=== PATIENT | female | born 2000 | race Caucasian/White ===

== ENCOUNTER 2020-01-17 09:31 | Outpatient (CLI) | payer MEDICAID, SELFPAY ==
--- NOTE | 2020-01-17 | US_ITS ---
WS: [id number] ULTRASOUND OB COMPLETE TECHNIQUE: Complete ultrasound. CLINICAL INFORMATION: SUPERVISION OF NORMAL FIRST COMPARISON: None. FINDINGS: Single interuterine gestation is identified with vertex presentation. Placenta is posterior. Placenta grade 0. Normal amniotic fluid volume. cardiac activity: 148 BPM. AGA: 20 weeks 3 days EMERSON by ultrasound: June 02, 2020 Estimated weight: 12 ounces BDP: 4.8 cm = 20w3d HC: 17.6 cm = 20w1d AC: 15.1 cm = 20w2d FEMUR LENGTH: 3.4 cm = 20w4d Anatomic survey: Anatomic survey is normal. Normal stomach. Kidneys and bladder are normal. Normal 3 vessel cord. Norm al 3 vessel cord insertion. Normal 4 chamber heart. Normal spine. Intracranial contents are normal. N ormal posterior fossa and cisterna magna. US/US OB >= 14 weeks fetus [id number] IMPRESSION: 1. Single intrauterine with visualized cardiac activity. AGA 20 week s 3 days with EMERSON June 02, 2020. 2. Placenta is posterior No evidence of abruption or previa. 3. anatomic survey is normal. 4. Normal amniotic fluid volume.
== END 2020-01-17 09:32 | disposition home or self-care (01) ==
LOC: RADWPI 11:37
PROVIDERS: PCP Nurse Practitioner Family; Visit Provider Family Medicine
DX: Z76.89 Persons encountering health services in other specified circumstances (principal)

== ENCOUNTER → 2020-03-08 08:28 | Outpatient (BNVA) | payer MEDICAID, SELFPAY | PROVIDERS: PCP Nurse Practitioner Family; Visit Provider Social Worker | DX: F33.2 Major depressive disorder, recurrent severe without psychotic features (principal); F43.12 Post-traumatic stress disorder, chronic | CPT/HCPCS: 90834 ==

== ENCOUNTER 2020-04-23 14:30 | Inpatient (IN) | payer MEDICAID, SELFPAY ==
[2020-04-23] VITALS (56 sets, daily range): BP systolic 0–140; BP diastolic 0–72; PULSE 69–105; RESP 17–18; TEMP 36.6–37.2; BMI 29.0
[2020-04-23] MEDS: terbutaline 1 mg/mL INJ 0.25 MG SUBCUT (11:47)
[2020-04-23] MEDS: lactated ringers 1,000 ML 999 ML IV (12:57)
[2020-04-23] MEDS: NIFEdipine ER (24 hr) 30 mg Tablet PO (12:57)
[2020-04-23] MEDS: betamethasone susp 6 mg/mL 5 mL 12 MG IM (14:58)
[2020-04-23] MEDS: dextrose 5%-lactated ringers 1,000 ML 125 ML IV (14:59)
[2020-04-23] MEDS: magnesium sulfate premix 4 GM/100 ML PREMIX IV (15:00)
[2020-04-23] MEDS: magnesium sulfate premix 20 GM/500 ML BAG IV ×2 (15:00→23:28)
[2020-04-23 16:10] LABS: Nitrazine Paper, PH Inconclusive
[2020-04-23 16:21] LABS: Actim Prom Negative
--- NOTE | 2020-04-23 17:58 | PC.NURSE ---
Talking on phone to s/o
--- NOTE | 2020-04-23 19:17 | PC.NURSE ---
Call to Lisbeth Colon RN nurse scheduling manager regarding pt significant other leaving floor to go smoke after knowing many times he was told he would not be aloud back on floor with the pt if left. Significant other Damian left floor before pt was started on magnesium and was aware that she was in possible early labor. After discussing situation with Lisbeth Colon RN she stated that at this time he would not be allowed back as he was aware of this but if pt were to go into labor and deliver baby we would reassess about if he may return to floor.
--- NOTE | 2020-04-23 20:01 | P.HP_ITS ---
Providers/Chief Complaint Admitting Physician: Mily Kenyon MD Primary Care Provider: Rosie Warner Chief Complaint: Decreased Movement History of Present Illness Note: Patient is an inconsistent historian Eladia Haynes is a 19 year old at 34 weeks 2 days gestation with a stated EMERSON of 06/01/2020 who presented to labor and delivery complaining of 1 day history of decreased movement. She had been traveling on the road with her spouse and they just returned to town yesterday. She had a little bit of green vaginal discharge but no itching or irritation. No vaginal bleeding. No leaking of fluid. No dysuria. She says that yesterday she began feeling contractions but this was only after we pointed out contractions on the monitor to her and asked about tightening. (she reported 9 days of contractions and 2 days of decreased movement to nursing) On presentation the patient was louis regularly every 2 minutes. She was feeling the contractions though they were not painful. She was given a 1 L bolus of fluid. She was given a dose of terbutaline which did not stop the contractions. Her cervix was checked and was 2 cm dilated, 75% effaced (highly unusual for a G1 at 34 weeks). She was given a dose of betamethasone and started on magnesium sulfate to prevent further progression of labor. Her contractions did space out a little bit and are at times irregular but can still be every 2 to 5 minutes. Several hours after starting the magnesium however she no longer feels the contractions that we continue to pick them up on the monitor. Her cervix was rechecked 4 hours later and there was no cervical change. Review of Systems Const: Denies: fever(s), body aches or change in appetite Eyes: Denies: change in vision ENMT: Denies: throat pain Card: Denies: chest pain or palpitations Resp: Denies: dyspnea or productive cough GI: Denies: abdominal pain, nausea or vomiting : Reports: vaginal discharge (Green); Denies: flank pain, dysuria, hematuria, genital pruritis, vaginal bleeding or pelvic pain Musc: Denies: limited range of motion Skin/Breast: Denies: rash Neuro: Denies: behavioral changes Cade/Lymph: Denies: easy bruising or easy bleeding Medications/Allergies Home Medications Medication Instructions Recorded Confirmed Last Taken Type Heartburn Relief 04/23/20 Unknown History Allergies Allergy/AdvReac Type Severity Reaction Status Date / Time adhesive Allergy ALGY-Hives Verified 04/23/20 11:06 Penicillins Allergy Unknown Verified 04/23/20 11:06 PFSH Acute PFSH: Medical History (Updated 04/23/20 @ 20:19 by Mily Kenyon MD) Foot trauma Surgical History (Updated 04/23/20 @ 20:06 by Mily Kenyon MD) [place] teeth removed Female Reproductive History: : 1 Vitals/I&O/Wt Last Vital Signs Temp 98.2 F 04/23/20 11:11 Pulse 100 04/23/20 19:52 Resp 18 04/23/20 11:10 BP 107/66 04/23/20 19:52 04/23/20 04/23/20 04/23/20 06:59 14:59 22:59 Intake Total 1000 / 1000 877.917 / 1877.917 Output Total 750 / 750 Balance 1000 / 1000 127.917 / 1127.917 Weight last 48 hrs Weight 154 lb Physical Exam Const: COMMON NORMALS: no acute distress and average body habitus HENMT: COMMON NORMALS: normocephalic and atraumatic Eye: COMMON NORMALS: Equal, round and reactive pupils present and EOMs intact bilaterally Chest: COMMONS NORMALS: normal inspection of the chest Resp: COMMON NORMALS: normal respiratory effort and clear to auscultation bilaterally Cardio: COMMON NORMALS: regular rate and regular rhythm GI: COMMON NORMALS: Soft to palpation (Gravid), non-tender and no masses Extremity: COMMON NORMALS: no calf tenderness and no pedal edema Neuro: COMMON NORMALS: patient oriented x3 Psych: COMMON NORMALS: mental status grossly normal Urinary Catheter Management^: Latex Free: Cath Placed During This Visit: yes Reason for Continuing Indwelling Catheter: Accurate Measurement of Urinary Output in Critically Ill Patients Urinary Catheter Date of Insertion: 04/23/20 Urinary Catheter Time of Insertion: 15:45 A&P Assessment and plan (1) labor in third trimester: The patient continues to have regular contractions on magnesium however she can no longer feel them. She is status post 1 dose of betamethasone (which I decided to give her at 34 weeks 2 days gestation [place] She will receive a second dose tomorrow. Going to check urine GC and chlamydia. Should the patient breakthrough and start to labor on the magnesium we will start GBS protocol since she is GBS unknown. Status: Acute (2) Decreased movement: The was reactive upon presentation with good accelerations. We will do NST every shift and as needed Status: Acute (3) 34 weeks gestation of : 34 weeks 2 days gestation per patient stated EMERSON of 06/01/2020 Status: Acute (4) Heartburn during in third trimester: Pt previously lost significant weight due to this. Cont on PPI. 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
[2020-04-23 22:04] LABS: Bilirubin Urine Neg (NEGATIVE); Blood Urine 3+ (Negative); Glucose Urine UA Norm (Normal); Ketones Urine 2+ (Negative); Leukocyte Esterase Urine Negative (Negative); Nitrate Urine Negative (Negative); Protein Urine Neg (Negative); Urine Appearance SL Hazy (CLEAR); Urine Color Yellow (Yellow); Urobilinogen Urine Norm (Negative); pH Urine 6 (5-7)
[2020-04-23 22:05] LABS: Add Urine Culture? Yes; Bacteria Urine TRACE; Mucus Urine TRACE; RBC Urine 25-40 /hpf (0-2); Squamous Epithelial Cell Urine 0-4 (0-5); WBC Urine 0-4 /hpf (0-5)
[2020-04-23] MEDS: pantoprazole DR 40 mg Tablet PO (23:29)
--- NOTE | 2020-04-23 23:38 | PC.NURSE ---
04/23/2020 @ 2910 New bag of Mag duarte and verified with KELLY Castro
--- NOTE | 2020-04-23 23:48 | PC.NURSE ---
04/23/2020 @ 2200 Up to bedside commode with assistance. Educated patient on calling out for assistance back to bed. Patient V/U.
[2020-04-24] VITALS (43 sets, daily range): BP systolic 0–124; BP diastolic 0–65; PULSE 70–98; RESP 17; TEMP 36.4–36.6
[2020-04-24] MEDS: dextrose 5%-lactated ringers 1,000 ML 75 ML IV ×2 (04:29→17:54)
[2020-04-24] MEDS: pantoprazole DR 40 mg Tablet PO ×2 (07:33→17:43)
[2020-04-24] MEDS: magnesium sulfate premix 20 GM/500 ML BAG IV ×2 (10:32→19:44)
[2020-04-24] MEDS: betamethasone susp 6 mg/mL 5 mL 12 MG IM (14:35)
--- NOTE | 2020-04-24 19:26 | PM.PN ---
Subjective Subjective: Interval history: Doing fine. She has good movement today. She got her second dose of betamethasone around 230 this afternoon. She had a small amount of brownish discharge but otherwise no loss of fluid. Vitals/I&O/Wt Last Vital Signs Temp 97.6 F 04/24/20 03:30 Pulse 96 04/24/20 19:08 Resp 17 04/24/20 03:30 BP 118/65 04/24/20 19:08 04/24/20 04/24/20 04/24/20 06:59 14:59 22:59 Intake Total 360.417 / 2675.000 348.333 / 842.549 7388 / 1348.333 Output Total 1225 / 2850 1460 / 1460 350 / 1810 Balance -864.583 / -175.000 -1111.667 / -1111.667 650 / -461.667 Weight last 48 hrs Weight 154 lb Physical Exam HENMT: COMMON NORMALS: normocephalic and atraumatic HEAD & SCALP: normocephalic and atraumatic Eye: COMMON NORMALS: Equal, round and reactive pupils present and EOMs intact bilaterally PUPIL: Yes Equal, round and reactive pupils present Chest: COMMONS NORMALS: normal inspection of the chest Resp: COMMON NORMALS: normal respiratory effort, No retractions and No use of accessory muscles Cardio: COMMON NORMALS: regular rate and regular rhythm RATE: regular rate RHYTHM: regular rhythm GI: COMMON NORMALS: Soft to palpation (Gravid) and non-tender PALPATION: Yes Soft to palpation (Gravid) Extremity: COMMON NORMALS: no calf tenderness GENERAL: Yes edema (1+) Urinary Catheter Management^: Latex Free: Cath Placed During This Visit: yes, but has since been removed by the nurse Reason for Continuing Indwelling Catheter: Accurate Measurement of Urinary Output in Critically Ill Patients Urinary Catheter Date of Insertion: 04/23/20 Urinary Catheter Time of Insertion: 15:45 Date Urinary Catheter Removed: 04/23/20 Time Urinary Catheter Discontinued: 20:00 Flower Latex: Cath Placed During This Visit: yes Reason for Continuing Indwelling Catheter: Accurate Measurement of Urinary Output in Critically Ill Patients Urinary Catheter Date of Insertion: 04/23/20 Urinary Catheter Time of Insertion: 20:00 Data Micro: Microbiology 04/23/20 21:30 Chlamydia trachomatis (ARIELA) - Final Urine Random Neisseria gonorrhoeae (ARIELA) - Final A&P Assessment and plan (1) Heartburn during in third trimester: Continue PPI Status: Acute (2) 34 weeks gestation of : 34w4d Status: Acute (3) Decreased movement: resolved Status: Acute (4) labor in third trimester: She has been on the magnesium now for little bit over 24 hours and her contractions have resolved completely. We will discontinue the magnesium after 48 hours so the steroids have had time to take effect. As a precaution I will likely start Procardia prior to discontinuing the magnesium. Possible discharge home later tomorrow evening if not in labor. 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
[2020-04-25] VITALS (24 sets, daily range): BP systolic 0–119; BP diastolic 0–63; PULSE 17–96; RESP 17; TEMP 36.8; O2SAT 97
[2020-04-25] MEDS: magnesium sulfate premix 20 GM/500 ML BAG IV (05:24)
[2020-04-25] MEDS: dextrose 5%-lactated ringers 1,000 ML 75 ML IV (05:25)
[2020-04-25] MEDS: pantoprazole DR 40 mg Tablet PO (07:37)
[2020-04-25] MEDS: NIFEdipine ER (24 hr) 30 mg Tablet PO (14:06)
--- NOTE | 2020-04-25 14:30 | PC.NURSE ---
Magnesium discontinued Magnesium discontinued at this time. Flower catheter removed.
--- NOTE | 2020-04-25 16:45 | PM.DCS ---
Discharge Providers Date of Admission: 04/23/20 14:30 Date of Discharge: April 25, 2020 Attending Provider at Admission: Mily Kenyon MD Attending Provider at Discharge: Mily Kenyon MD Primary Care Provider: Rosie Warner Diagnoses at Discharge Discharge Diagnosis (1) Heartburn during in third trimester: Status: Acute (2) 34 weeks gestation of : Status: Acute Problem details: Now 34 weeks 5 days gestation status post betamethasone x2 (3) Decreased movement: Status: Acute Problem details: Reactive NSTs (4) labor in third trimester: Status: Acute (5) Bloody discharge from nipple: Status: Acute Problem details: Mentioned upon discharge Reason for Visit Reason for Visit: Reason For Visit: Decreased Movement Hospital Course Hospital Course: This is a 19-year-old G1, P0 at 34 weeks 5 days gestation who was initially triaged for decreased movement. Her NST was reactive however did show regular contractions. Upon further questioning the patient did admit to feeling the contractions. She stated that they have been going on anywhere from 9 to 2 days. She was given a dose of terbutaline but continued to contract. She was given a liter of IV fluids and continued to contract. She was then started on magnesium which eventually resolved her contractions. She got 2 doses of betamethasone and is now 48 hours out from the first dose. She has been weaned off the magnesium and has been placed on Procardia 30 mg XL. At the time of discharge the patient pointed out to this physician that she had bilateral bloody nipple discharge greater on the left side. She states this is been going on for 18 or 19 days. This will need to be worked up outpatient. Physical Exam HENMT: COMMON NORMALS: normocephalic and atraumatic HEAD & SCALP: normocephalic and atraumatic Eye: COMMON NORMALS: Equal, round and reactive pupils present and EOMs intact bilaterally PUPIL: Yes Equal, round and reactive pupils present Chest: NIPPLE/AREOLA: Yes nipple discharge (BRB on gown) Nipple discharge: yellow and brown Resp: COMMON NORMALS: normal respiratory effort and No retractions Cardio: COMMON NORMALS: regular rate and regular rhythm RATE: regular rate RHYTHM: regular rhythm GI: COMMON NORMALS: Soft to palpation and non-tender (Gravid) PALPATION: Yes Soft to palpation Extremity: COMMON NORMALS: no calf tenderness GENERAL: Yes edema (1+ to trace bilaterally) Urinary Catheter Management^: Latex Free: Cath Placed During This Visit: yes, but has since been removed by the nurse Reason for Continuing Indwelling Catheter: Accurate Measurement of Urinary Output in Critically Ill Patients Urinary Catheter Date of Insertion: 04/23/20 Urinary Catheter Time of Insertion: 15:45 Date Urinary Catheter Removed: 04/23/20 Time Urinary Catheter Discontinued: 20:00 Flower Latex: Cath Placed During This Visit: yes, but has since been removed by the nurse Reason for Continuing Indwelling Catheter: Decision to DC Catheter Urinary Catheter Date of Insertion: 04/23/20 Urinary Catheter Time of Insertion: 20:00 Date Urinary Catheter Removed: 04/25/20 Time Urinary Catheter Discontinued: 14:35 Discharge Data Data Completed and Pending: Pending at discharge Category Date Time Status Urine Culture Rou magdiel Lab 04/23/20 21:30 Received Vitals: Last Vital Signs Temp 97.9 F 04/24/20 19:30 Pulse 75 04/25/20 16:08 Resp 17 04/24/20 19:30 BP 102/47 04/25/20 16:08 Pulse Ox 97 04/25/20 14:35 Discharge Plan Discharge Patient Disposition: Home, Self-Care Condition: Stable Prescriptions: New nifedipine 30 mg Tablet Extended Release 24hr 30 mg PO DAILY Qty: 30 RF: 0 Continued Heartburn Relief RF: 0 Discharge Orders: Discharge Order (Routine); Ordered 04/25/20 Ordered By: Mily Kenyon Referrals: Mily Kenyon MD [Physician] - 1 week Discharge Diet: Usual diet Discharge Activity: Limit activity as instructed Discharge Attestations Time Spent in Discharge Care*: less than 30 min Quality Metrics Clinical Quality Measures During this hospital stay, did patient experience: None Coding Level of Care Code Acute 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
== END 2020-04-25 15:55 | disposition home or self-care (01) | DRG 833 ==
LOC: OBGYN 04-24 11:42 → OPOB 04-25 08:49
PROVIDERS: Admitting Provider Family Medicine; PCP Nurse Practitioner Family; Visit Provider Family Medicine
DX: O60.03 Preterm labor without delivery, third trimester (principal); Z3A.34 34 weeks gestation of pregnancy; O36.8130 Decreased fetal movements, third trimester, not applicable or unspecified; O26.893 Other specified pregnancy related conditions, third trimester; R12 Heartburn; O92.79 Other disorders of lactation
CPT/HCPCS: 12345; 51702; 59025; 81001; 83986; 84112; 87086; 87491; 87591; 96372; 99211; J0702; J3105; J3475

== ENCOUNTER → 2020-05-01 08:35 | Outpatient (BNVA) | payer MEDICAID, SELFPAY | PROVIDERS: PCP Nurse Practitioner Family; Visit Provider Social Worker | DX: F33.2 Major depressive disorder, recurrent severe without psychotic features (principal); F43.12 Post-traumatic stress disorder, chronic | CPT/HCPCS: 90834 ==

== ENCOUNTER 2020-05-02 16:20 | Inpatient (IN) | payer MEDICAID, SELFPAY ==
[2020-05-02] VITALS (56 sets, daily range): BP systolic 0–145; BP diastolic 0–99; PULSE 37–104; RESP 16–18; TEMP 36.9–37.2; O2SAT 93–98; BMI 27.9
[2020-05-02] MEDS: dextrose 5%-lactated ringers 1,000 ML 125 ML IV (17:24)
[2020-05-02] MEDS: ceFAZolin 1,000 MG in sodium chloride 0.9% (plus) 50 ML 100 MG IV ×2 (17:24→20:41)
[2020-05-02] MEDS: fentaNYL 50 mcg/mL INJ 2mL IV (17:28)
[2020-05-02 18:10] LABS: Basophils # 0.1 10^3/uL (0.0-0.1); Basophils % 0.2 %; Eosinophils # 0.1 10^3/uL (0.0-0.8); Eosinophils % 0.4 %; Hematocrit 36.6 % (37.0-47.0); Hemoglobin 11.8 g/dL (11.5-15.3); Lymphocytes # 1.4 10^3/uL (1.5-6.5); Mean Corpuscular HGB Conc 32.2 g/dL (30.0-36.0); Mean Corpuscular Hemoglobin 28.2 pg (28.0-34.0); Mean Corpuscular Volume 87.4 fL (81-99); Mean Platelet Volume 11.8 fL (7.4-10.4); Monocytes % 4.2 %; Neutrophils # 20.4 10^3/uL (1.8-8.0); Neutrophils % 88.4 %; Nucleated Red Blood Cells % 0 %; Platelet Count 244 10^3/cmm (130-400); Red Blood Count 4.19 10^6/uL (4.1-5.3); White Blood Count 23.1 10^3/uL (4.5-13.0)
[2020-05-02 18:19] LABS: Amphetamines Screen Urine Negative (Negative); Barbiturates Screen Urine Negative (Negative); Benzodiazepines Screen Urine Negative (Negative); Cocaine Screen Urine Negative (Negative); Opiate Screen Urine Negative (Negative); PCP Screen Urine Negative (Negative); THC Screen Urine Negative (Negative)
[2020-05-02 18:29] LABS: Bilirubin Urine Neg (NEGATIVE); Blood Urine Neg (Negative); Glucose Urine UA Norm (Normal); Ketones Urine 2+ (Negative); Leukocyte Esterase Urine Negative (Negative); Nitrate Urine Negative (Negative); Protein Urine Neg (Negative); Specific Gravity, Urine 1.015 (1.005-1.030); Urine Appearance Clear (CLEAR); Urine Color Yellow (Yellow); Urobilinogen Urine Norm (Negative); pH Urine 6 (5-7)
[2020-05-02 18:30] LABS: Add Urine Culture? No; Bacteria Urine TRACE; Mucus Urine 2+; RBC Urine 0-4 /hpf (0-2); Squamous Epithelial Cell Urine 15-25 (0-5); WBC Urine 0-4 /hpf (0-5)
--- NOTE | 2020-05-02 19:38 | P.ANESASSM_ITS ---
Pre-Anesthetic Assessment Pre-Anesthetic Assessment: Height/Weight: Height 1.55 m Weight 67.132 kg Temp Pulse Resp BP 98.6 F 81 16 100/48 05/02/20 16:16 05/02/20 19:33 05/02/20 17:28 05/02/20 19:33 Preop Diagnosis: IUP Proposed Procedure: Labor epidural Was Beta Rick taken within 24 hours: N/A Last Intake: 15:00 Social: Social History: No alcohol and No tobacco Exam: Pre-Anes Outpt Exam: alert and oriented x 3 Airway: Submandibular: WNL Cervical ROM: WNL MP: 2 Dentition: Other Additional comments: braces Pulmonary: Pulmonary: None reported CV/HEM: CV/HEM: None reported : Comments: urinary infection that was treated in march, denies urinary symptoms at this time. urinalysis negative for nitrates and leukocytes Hepatic: Hepatic: None reported GI: GI: GERD Metabolic: Metabolic: None reported Musc/skel: Musc/skel: None reported Neuropsych: Neuropsych: Anxiety and Depression Anesthetic Plan: ASA status: 2 Anesthesia: Anesthesia Evaluation and Eval. for regional block Risk of > 500 ml blood loss (7ml/kg in children): No Meds/Allergies Current Medications: Current Medications Generic Name Dose Route Start Last Admin Trade Name Freq PRN Reason Stop Dose Admin Fentanyl 25 - 100 mcg 05/02/20 17:01 05/02/20 17:28 Sublimaze IV 25 mcg Q1H PRN Administration SEVERE PAIN Dextrose/Lactated Ringer's 1,000 mls @ 125 m ls/hr 05/02/20 17:00 05/02/20 17:24 Dextrose 5%-Lact ated Ringers IV 125 mls/hr .Q8H IDA Administration Cefazolin Sodium 1 ,000 mg/ 50 mls @ 100 mls/ hr 05/02/20 17:15 05/02/20 17:54 Sodium Chloride IV Infused Q8H IDA Infusion Protocol PFS Anesthesia PFSH: Medical History (Updated 04/25/20 @ 16:47 by Mily Kenyon MD) Foot trauma Surgical History (Updated 04/23/20 @ 20:06 by Mily Kenyon MD) [place] teeth removed Female Reproductive History: : 1 Data Anesthesia CBC & Chem 7: 05/02/20 17:00 Other Labs: Laboratory Results - last 48 hr 05/02/20 05/02/20 05/02/20 17:00 17:50 17:50 WBC 23.1 H RBC 4.19 Hgb 11.8 Hct 36.6 L MCV 87.4 MCH 28.2 MCHC 32.2 RDW 13.0 Plt Count 244 MPV 11.8 H Neut % (Auto) 88.4 Lymph % (Auto) 6.0 [place] % (Auto) 4.2 Eos % (Auto) 0.4 Baso % (Auto) 0.2 Neut # (Auto) 20.4 H Lymph # (Auto) 1.4 L [place] # (Auto) 1.0 H Eos # (Auto) 0.1 Baso # (Auto) 0.1 Nucleated RBC % (auto) 0 Nucleated RBCs # 0.0 Urine Color Yellow Urine Appearance Clear Urine pH 6 Ur Specific [place] 1.015 Urine Protein Neg Urine Glucose (UA) Norm Urine Ketones 2+ H Urine Blood Neg Urine Nitrate Negative Urine Bilirubin Neg Urine Urobilinogen Norm Ur Leukocyte Esterase Negative Urine RBC 0-4 H Urine WBC 0-4 H Ur Squamous Epith Cells 15-25 H Urine Bacteria Trace Urine Mucus 2+ Urine Opiates Screen Negative Ur Barbiturates Screen Negative Ur Phencyclidine Scrn Negative Ur Amphetamines Screen Negative U Benzodiazepines Scrn Negative Urine Cocaine Screen Negative U Marijuana (THC) Screen Negative Cardiac Studies: No Data to Display
[2020-05-02] MEDS: lactated ringers 1,000 ML 999 ML IV (19:51)
--- NOTE | 2020-05-02 20:15 | ANES.PROC ---
Anesthesia Procedures Procedure/Date: 05/02/20 Labor epidural Epidural: Time Out Performed: Yes Consents Signed: Procedure Consent Consent: requested by attending/covering physician, from patient and risks and benefits reviewed Lumbar Level: L3-L4 Epidural position: sitting Epidural procedure: sterile prep of area, 1% lidocaine to numb the area (3 cc ), 18 g needle (L4-L5), negative for paresthesia passed, neg for paresthesia, test dose given (3 cc no reaction), 1.5% xylocaine 1:200k epi, placed PCEA (5 cc bolus from news analyst), no systemic response and 0.2% Ropiavacaine @ mls/hr (11 mls/hr 5 cc bolus Q 10 min x max 3) Additional Comments: Started 1954: USMAN at 6 cm epidural catheter threaded to 14 cm at skin. pump started at 2008. Patient states toes are starting to feel numb and tingly. VSS see Obyx system
--- NOTE | 2020-05-02 22:49 | PC.NURSE ---
Dr Kenyon at bedside evaluating pushing effort, she states to labor down and place patient on the peanut ball. She wants patient to labor down until 0015, then start pushing with patient again.
[2020-05-03] VITALS (24 sets, daily range): BP systolic 98–141; BP diastolic 62–88; PULSE 61–102; RESP 16–18; TEMP 36.4–37.4; O2SAT 96–99
[2020-05-03] MEDS: oxytocin 30 UNIT/500 ML BAG 600 UNIT IV (01:38)
--- NOTE | 2020-05-03 01:56 | PM.DELIVERY ---
Delivery Note: Date of delivery: May 03, 2020 Pre-Delivery Course: The patient had routine care at [facility]. Her was complicated by labor at 34 weeks gestation where she was admitted for a good 48-hour stay on magnesium. She received 2 doses of betamethasone during her hospitalization. Delivery: This is a 19-year-old G1, P0 at 35 weeks 6 days gestation who presented to labor and delivery in active labor. She was louis regularly and cervical dilation was 3 cm 90% effaced -1 station. She was GBS unknown and penicillin allergic so she was started on cefazolin. She progressed well on her own and received an epidural for pain management. When she was 9 cm and 0 station she had artificial rupture of membranes with a small amount of clear fluid. Once she was complete we did a trial of pushing that was ineffective so she was allowed to labor down. She had off-and-on ineffective pushing but after approximately an hour and a half had a normal spontaneous vaginal delivery of a viable male over an intact perineum. The was suctioned at delivery and placed on the mother's chest. The cord was clamped and cut. Infant weighed 5 pounds 11 ounces, 2570 g, Apgars 8 and 9. The placenta was delivered grossly intact and normal to inspection. There was a second-degree left vaginal laceration that was sutured using 3-0 chromic. Mother and were doing well after delivery. 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
[2020-05-03] MEDS: benzocaine-menthol 78 gm Canister 1 SPRAY TOPICAL (04:35)
[2020-05-03] MEDS: lanolin oint 7 gm 1 APPLIC TOPICAL (04:36)
--- NOTE | 2020-05-03 04:56 | PC.NURSE ---
Patient ambulated to PP room at this time, no complaints of dizziness, nausea, or feelings of being lightheaded.
[2020-05-03] MEDS: docusate sodium 100 mg Capsule PO (10:54)
[2020-05-03] MEDS: prenatal vitamin Capsule 1 CAP PO (10:58)
[2020-05-03 18:02] LABS: Hematocrit 30.8 % (37.0-47.0); Hemoglobin 9.9 g/dL (11.5-15.3); Mean Corpuscular HGB Conc 32.1 g/dL (30.0-36.0); Mean Corpuscular Hemoglobin 27.8 pg (28.0-34.0); Mean Corpuscular Volume 86.5 fL (81-99); Platelet Count 213 10^3/cmm (130-400); Red Blood Count 3.56 10^6/uL (4.1-5.3); Red Cell Distribution Width 12.8 % (12.1-15.1); White Blood Count 18.6 10^3/uL (4.5-13.0)
[2020-05-04 05:33] VITALS: BP 114/72; PULSE 82; RESP 18; TEMP 36.8
--- NOTE | 2020-05-04 08:10 | PC.NURSE ---
Discussed with pt about continuing to express her milk and feed with a bottle. She plans to do that but is happy baby is feeding better now.
[2020-05-04] MEDS: docusate sodium 100 mg Capsule PO ×2 (08:44→18:43)
[2020-05-04] MEDS: prenatal vitamin Capsule 1 CAP PO (08:44)
[2020-05-04 10:30] VITALS: BP 118/74; PULSE 87; RESP 17; TEMP 36.6; O2SAT 97
--- NOTE | 2020-05-04 12:33 | P.PN_ITS ---
Subjective Subjective: Interval history: Doing fine. Has no complaints today. Says bleeding is like a period Vitals/I&O/Wt Last Vital Signs Temp 98.2 F 05/04/20 05:33 Pulse 82 05/04/20 05:33 Resp 18 05/04/20 05:33 BP 114/72 05/04/20 05:33 Pulse Ox 99 05/03/20 20:30 Weight last 48 hrs Weight 148 lb Physical Exam Const: COMMON NORMALS: patient oriented x3 HENMT: COMMON NORMALS: normocephalic and atraumatic HEAD & SCALP: normocephalic and atraumatic FACE & SINUS: normal facial exam Eye: COMMON NORMALS: Equal, round and reactive pupils present and EOMs intact bilaterally PUPIL: Yes Equal, round and reactive pupils present GI: COMMON NORMALS: Soft to palpation (Fundus firm U- 2) INSPECTION: Yes normal to inspection PALPATION: Yes Soft to palpation (Fundus firm U- 2), No Tenderness to palpation present (GI), No Guarding due to palpation present (GI) and No Rigid due to palpation Extremity: GENERAL: No calf tenderness and No edema Neuro: COMMON NORMALS: patient oriented x3 Urinary Catheter Management^: Flower: Cath Placed During This Visit: yes, but has since been removed by the nurse Reason for Continuing Indwelling Catheter: Decision to DC Catheter Urinary Catheter Date of Insertion: 05/02/20 Urinary Catheter Time of Insertion: 20:15 Date Urinary Catheter Removed: 05/02/20 Time Urinary Catheter Discontinued: 22:05 Data : 05/03/20 15:50 A&P Assessment and plan (1) Normal spontaneous vaginal delivery: Routine care Status: Acute (2) delivery: Status: Acute Attestations Medical Necessity Statement*: Routine care Coding Level of Care Code Acute Equipment Monitor Phototypesetting for [facility] Fwd Diagnoses Normal spontaneous vaginal delivery O80 delivery O60.10X0
[2020-05-04 16:44] VITALS: BP 119/71; PULSE 71; RESP 17; TEMP 36.9; O2SAT 97
[2020-05-04 22:40] VITALS: BP 106/69; PULSE 73; RESP 18
[2020-05-05 04:45] VITALS: BP 106/70; PULSE 73; RESP 16
[2020-05-05] MEDS: docusate sodium 100 mg Capsule PO (09:10)
[2020-05-05] MEDS: prenatal vitamin Capsule 1 CAP PO (09:10)
[2020-05-05 09:15] VITALS: BP 118/79; PULSE 62; RESP 17; TEMP 36.7
--- NOTE | 2020-05-05 13:41 | PM.OBGYDC ---
Discharge Providers BOOMSWING OPERATOR Date of Admission: 05/02/20 16:20 Date of Discharge: 05/12/20 Attending Provider at Admission: Mily Kenyon MD Attending Provider at Discharge: Mily Kenyon MD Primary Care Provider: Rosie Warner Diagnoses at Discharge Discharge Diagnosis (1) Normal spontaneous vaginal delivery: Status: Acute (2) delivery: Status: Acute Reason for Visit Reason for Visit: abd pain Hospital Course Hospital Course: This is a 19-year-old G1 now P1 who was admitted in labor. She had a normal spontaneous vaginal delivery of a viable male infant. After delivery she did well. Her bleeding was about like period. She was ambulating, tolerating a regular diet, and had no complaints of pain on the day of discharge. Information Peripartum Data: Infant Delivery Method: Vaginal Physical Exam Const: COMMON NORMALS: alert ORIENTATION/CONSCIOUSNESS: Yes oriented to person and Yes oriented to place HENMT: COMMON NORMALS: normocephalic HEAD & SCALP: normocephalic Eye: COMMON NORMALS: Equal, round and reactive pupils present and EOMs intact bilaterally PUPIL: Yes Equal, round and reactive pupils present Chest: COMMONS NORMALS: normal inspection of the chest Resp: COMMON NORMALS: normal respiratory effort and clear to auscultation bilaterally AUSCULTATION: clear to auscultation bilaterally Cardio: COMMON NORMALS: regular rate and regular rhythm RATE: regular rate RHYTHM: regular rhythm GI: COMMON NORMALS: Soft to palpation, non-tender and no masses PALPATION: Yes Soft to palpation Extremity: GENERAL: No calf tenderness and Yes edema Neuro: SENSORIUM/ORIENTATION: Yes alert, Yes oriented to person and Yes oriented to place Urinary Catheter Management^: Flower: Cath Placed During This Visit: yes, but has since been removed by the nurse Reason for Continuing Indwelling Catheter: Decision to DC Catheter Urinary Catheter Date of Insertion: 05/02/20 Urinary Catheter Time of Insertion: 20:15 Date Urinary Catheter Removed: 05/02/20 Time Urinary Catheter Discontinued: 22:05 Discharge Data Vitals: Last Vital Signs Temp 98.1 F 05/05/20 09:15 Pulse 62 05/05/20 09:15 Resp 17 05/05/20 09:15 BP 118/79 05/05/20 09:15 Pulse Ox 97 05/04/20 16:44 Discharge Plan Discharge Patient Disposition: Home, Self-Care Condition: Stable Prescriptions: Continued Prilosec 10 mg Susp,Delayed Release For Recon 10 mg PO DAILY RF: 0 Discharge Orders: Discharge Order (Routine); Ordered 05/05/20 Ordered By: Mily Kenyon Referrals: Mily Kenyon MD [Physician] - 1 month (Follow up with Dr Kenyon scheduled for June 05 9:45am) Discharge Diet: Usual diet Discharge Activity: Limit activity as instructed Patient Instructions: OB Discharge Report, OB Food/Drug Interaction Guide, OB Care at Home, OB Vaginal Deliveries Discharge Date/Time: 05/05/20 16:05 Discharge Attestations BOOMSWING OPERATOR Time Spent in Discharge Care*: less than 30 min Coding Level of Care Code Acute Human Resources Operations Director for Chg Fwd Exam Comprehensive Diagnoses Normal spontaneous vaginal delivery O80 delivery O60.10X0
--- NOTE | 2020-05-05 14:50 | PC.NURSE ---
Discussed with mother that the babies IV infiltrated and had to be discontinued. At this time it would be important to keep up with feeding the baby every 2-3hr and we would most likely start back up every 4hr blood sugar checks. Also discussed the importance of continuing to keep baby wrapped and bundled to keep temperature up so baby will not have to work as hard to regulate temperature and burn more calories and blood sugar, mother verbalized understanding at this time. No questions or concerns noted.
[2020-05-05 19:23] VITALS: BP 111/70; PULSE 69; RESP 16; TEMP 36.9
--- NOTE | 2020-05-05 19:24 | PC.NURSE ---
Rooming with baby
== END 2020-05-05 16:05 | disposition home or self-care (01) | DRG 807 ==
LOC: OPOB 05-03 01:57 → OBGYN 05-03 01:57
PROVIDERS: Admitting Provider Family Medicine; PCP Nurse Practitioner Family; Visit Provider Family Medicine
DX: O60.14X0 Preterm labor third trimester with preterm delivery third trimester, not applicable or unspecified (principal); Z37.0 Single live birth; Z3A.35 35 weeks gestation of pregnancy; O70.1 Second degree perineal laceration during delivery
CPT/HCPCS: 12345; 36415; 51702; 59025; 59409; 80306; 81001; 83986; 85025; 85027; 96374; 98960; 99211; J0690; J2795; J3010

== ENCOUNTER → 2020-05-18 07:58 | Outpatient (BNVA) | payer MEDICAID, SELFPAY | PROVIDERS: PCP Nurse Practitioner Family; Visit Provider Social Worker Clinical | DX: F33.2 Major depressive disorder, recurrent severe without psychotic features (principal); F43.12 Post-traumatic stress disorder, chronic | CPT/HCPCS: 90834 ==

== ENCOUNTER → 2020-05-31 07:59 | Outpatient (BNVA) | payer MEDICAID, SELFPAY | PROVIDERS: PCP Nurse Practitioner Family; Visit Provider Social Worker Clinical | DX: F43.12 Post-traumatic stress disorder, chronic (principal); F33.2 Major depressive disorder, recurrent severe without psychotic features | CPT/HCPCS: 90834 ==

== ENCOUNTER → 2020-06-14 08:23 | Outpatient (BNVA) | payer MEDICAID, SELFPAY | PROVIDERS: PCP Nurse Practitioner Family; Visit Provider Social Worker Clinical | DX: F43.12 Post-traumatic stress disorder, chronic (principal); F33.2 Major depressive disorder, recurrent severe without psychotic features | CPT/HCPCS: 90834 ==

== ENCOUNTER → 2020-06-22 07:42 | Outpatient (BNVA) | payer MEDICAID, SELFPAY | PROVIDERS: PCP Nurse Practitioner Family; Visit Provider Social Worker Clinical | DX: F33.2 Major depressive disorder, recurrent severe without psychotic features (principal); F43.12 Post-traumatic stress disorder, chronic | CPT/HCPCS: 90834 ==

== ENCOUNTER → 2020-06-27 08:25 | Outpatient (BNVA) | payer MEDICAID, SELFPAY | PROVIDERS: PCP Nurse Practitioner Family; Visit Provider Social Worker Clinical | DX: F33.2 Major depressive disorder, recurrent severe without psychotic features (principal); F43.12 Post-traumatic stress disorder, chronic | CPT/HCPCS: 90834 ==

== ENCOUNTER → 2020-06-29 08:20 | Outpatient (BNVA) | payer MEDICAID, SELFPAY | PROVIDERS: PCP Nurse Practitioner Family; Visit Provider Psychiatry & Neurology Psychiatry | DX: F33.2 Major depressive disorder, recurrent severe without psychotic features (principal); F41.1 Generalized anxiety disorder; O99.345 Other mental disorders complicating the puerperium; F53.0 Postpartum depression | CPT/HCPCS: 90792 ==

== ENCOUNTER → 2020-07-05 09:03 | Outpatient (BNVA) | payer MEDICAID, SELFPAY | PROVIDERS: PCP Nurse Practitioner Family; Visit Provider Social Worker Clinical | DX: F41.1 Generalized anxiety disorder (principal); F33.2 Major depressive disorder, recurrent severe without psychotic features | CPT/HCPCS: 90834 ==

== ENCOUNTER → 2020-07-13 08:22 | Outpatient (BNVA) | payer MEDICAID, SELFPAY | PROVIDERS: PCP Nurse Practitioner Family; Visit Provider Social Worker Clinical | DX: F41.1 Generalized anxiety disorder (principal); F33.2 Major depressive disorder, recurrent severe without psychotic features | CPT/HCPCS: 90834 ==

== ENCOUNTER → 2021-03-08 09:54 | Outpatient (BNVA) | payer MEDICAID, SELFPAY | PROVIDERS: PCP Nurse Practitioner Family; Visit Provider Social Worker Clinical | DX: F41.1 Generalized anxiety disorder (principal); F33.9 Major depressive disorder, recurrent, unspecified | CPT/HCPCS: 90834 ==

== ENCOUNTER → 2021-03-15 09:04 | Outpatient (BNVA) | payer MEDICAID, SELFPAY | PROVIDERS: PCP Nurse Practitioner Family; Visit Provider Social Worker Clinical | DX: F33.2 Major depressive disorder, recurrent severe without psychotic features (principal); F41.1 Generalized anxiety disorder | CPT/HCPCS: 90834 ==

== ENCOUNTER → 2021-04-18 14:55 | Outpatient (BNVA) | payer MEDICAID, SELFPAY | PROVIDERS: PCP Nurse Practitioner Family; Visit Provider Social Worker Clinical | DX: F33.2 Major depressive disorder, recurrent severe without psychotic features (principal); F41.1 Generalized anxiety disorder | CPT/HCPCS: 90834 ==

== ENCOUNTER → 2021-05-03 07:43 | Outpatient (BNVA) | payer MEDICAID, SELFPAY | PROVIDERS: PCP Nurse Practitioner Family; Visit Provider Social Worker Clinical | DX: F33.2 Major depressive disorder, recurrent severe without psychotic features (principal); F41.1 Generalized anxiety disorder | CPT/HCPCS: 90834 ==

== ENCOUNTER → 2021-05-22 13:22 | Outpatient (BNVA) | payer MEDICAID, SELFPAY | PROVIDERS: PCP Nurse Practitioner Family; Visit Provider Social Worker Clinical | DX: F33.2 Major depressive disorder, recurrent severe without psychotic features (principal); F41.1 Generalized anxiety disorder | CPT/HCPCS: 90834 ==

== ENCOUNTER → 2021-05-31 09:50 | Outpatient (BNVA) | payer MEDICAID, SELFPAY | PROVIDERS: PCP Nurse Practitioner Family; Visit Provider Social Worker Clinical | DX: F33.2 Major depressive disorder, recurrent severe without psychotic features (principal); F41.1 Generalized anxiety disorder | CPT/HCPCS: 90834 ==

== ENCOUNTER → 2021-07-17 15:36 | Outpatient (BNVA) | payer MEDICAID, SELFPAY | PROVIDERS: PCP Nurse Practitioner Family; Visit Provider Social Worker Clinical | DX: F41.1 Generalized anxiety disorder (principal); F33.2 Major depressive disorder, recurrent severe without psychotic features | CPT/HCPCS: 90834 ==

== ENCOUNTER → 2021-08-03 14:42 | Outpatient (BNVA) | payer MEDICAID, SELFPAY | PROVIDERS: PCP Nurse Practitioner Family; Visit Provider Counselor Professional | DX: F41.1 Generalized anxiety disorder (principal); F33.2 Major depressive disorder, recurrent severe without psychotic features | CPT/HCPCS: 90834 ==

== ENCOUNTER 2021-12-11 18:27 | Emergency (ER) | payer MEDICAID, SELFPAY ==
[2021-12-11 19:18] VITALS: BP 116/69; PULSE 82; RESP 16; TEMP 37.2; O2SAT 98; BMI 30.2
--- NOTE | 2021-12-11 21:15 | W.ED.EAR ---
HPI - Ear Problem General: Chief complaint: Ear Stated complaint: Ear Ache\No Period in 30 days Time Seen by Provider: 12/11/21 20:56 History of Present Illness: HPI Narrative: 21-year-old female comes in today with complaints of right ear pain. Patient was also concerned due to the fact that she has not had a period in 1 month and felt that she may be . Patient reports her last menstrual cycle was November 17. Associated symptoms: Reports ear or mastoid pain Review of Systems General: Reports: 10 or more systems reviewed and unremarkable except in HPI and below ENMT: Reports: ear or mastoid pain PFS ED PFSH: Medical History (Updated 12/11/21 @ 21:17 by FLOR Joiner) Foot trauma Generalized anxiety disorder MDD (major depressive disorder) depression Surgical History [place] teeth removed Social History Smoking and tobacco status: former smoker Quit status (tobacco): has quit using tobacco Year quit tobacco: 10/28/2019 Former quit date comment: smoked for 6 months Second hand smoke exposure: Yes Physical Exam Const: COMMON NORMALS: patient oriented x3 GENERAL APPEARANCE: cooperative HENMT: COMMON NORMALS: normocephalic HEAD & SCALP: normocephalic TYMPANIC MEMBRANE: TM abnormal TM laterality: right Details: bulging and erythematous MOUTH: Normal oral and palatal mucosa present THROAT: posterior oropharynx normal Eye: GENERAL EYE: appearance normal, both eyes and all related structures Neck/C-Spine: COMMON NORMALS: full ROM Lymph: LYMPHATIC: no lymphadenopathy noted Resp: COMMON NORMALS: normal respiratory effort EFFORT & INSPECTION: Yes able to speak in complete sentences Cardio: COMMON NORMALS: regular rate and regular rhythm RATE: regular rate RHYTHM: regular rhythm GI: COMMON NORMALS: non-tender Extremity: COMMON NORMALS: normal to inspection Neuro: COMMON NORMALS: patient oriented x3 and moves all extremities Psych: COMMON NORMALS: mental status grossly normal and cooperative Skin: COMMON NORMALS: no rashes or lesions noted GENERAL SKIN EXAM: no rashes or lesions noted Course Vital Signs: Vital signs: Vital Signs Temperature 98.9 F 12/11/21 19:18 Pulse Rate 82 12/11/21 19:18 Respiratory Rate 16 12/11/21 21:39 Blood Pressure 116/69 12/11/21 19:18 Pulse Oximetry 98 12/11/21 19:18 MDM - Ear MDM Narrative: Medical decision making narrative: 21-year-old female comes in today with complaints of right ear pain and possibility of . On exam patient's right tympanic membrane was erythematous and dull. Posterior pharynx is clear. Patient did have some mild nasal drainage. No lymphadenopathy was noted. Differential diagnosis includes but not limited to upper respiratory infection, otitis media, otalgia, incidental . hCG urine test was positive. We will treat patient for a otitis media with azithromycin 2 tablets now and then 1 tablet daily for 4 days. Recommended Tylenol for pain and warm moist packs. Reviewed recommendations for further follow-up with primary care regarding . Patient reports understanding agreed to plan. Encourage no smoking and no alcohol or other drug use during . Lab Data: Labs: Lab Results 12/11/21 20:10 Urine HCG, Qual Positive H (Negative) Discharge Plan Discharge Patient Disposition: Home Clinical Impression: Otitis media Qualifiers: Otitis media type: suppurative Chronicity: acute Laterality: right Recurrence: not specified as recurrent Spontaneous tympanic membrane rupture: without spontaneous rupture Qualified Code(s): H66.001 - Acute suppurative otitis media without spontaneous rupture of ear drum, right ear Condition: Stable Prescriptions: New azithromycin 250 mg tablet 250 mg PO DAILY 4 Days Qty: 4 RF: 0 No Action omeprazole 20 mg capsule,delayed release(DR/EC) 20 mg PO BID RF: 0 venlafaxine 75 mg capsule,extended release 24hr 75 mg PO QAM Qty: 30 RF: 3 venlafaxine 37.5 mg capsule,extended release 24hr 37.5 mg PO QAM 8 Days Qty: 8 RF: 0 silver sulfadiazine [Silvadene] 1 % cream 1 applic TOPICAL BID Qty: 50 RF: 0 acetaminophen-codeine 300-30 mg tablet 1 tab PO Q6H PRN (Reason: pain) Qty: 14 RF: 0 Discharge Orders: Discharge ED (Routine); Ordered 12/11/21 Ordered By: Jose Phelps Referrals: Rosie Warner FNP [Primary Care Provider] - Discharge Diet: Usual diet Discharge Activity: Increase activity as tolerated Patient Instructions: Otitis Media - Adult, Opioid Safety Activity Restrictions/Additional Instructions: Antibiotics as directed. Warm moist packs to the ear for pain. Use acetaminophen as needed for further pain relief. Follow-up with primary care for further instruction. Return to the ER for new concerns. Coding Level of Care Code ED Power Equipment Mechanics Instructor for [place]
[2021-12-11] MEDS: azithromycin 250 mg Tablet 500 MG PO (21:25)
[2021-12-11 21:39] VITALS: RESP 16
== END 2021-12-11 21:39 | disposition home or self-care (01) ==
PROVIDERS: Emergency Provider Nurse Practitioner Family; PCP Nurse Practitioner Family
DX: H66.001 Acute suppurative otitis media without spontaneous rupture of ear drum, right ear (principal); Z87.891 Personal history of nicotine dependence
CPT/HCPCS: 81025; 99283; Q0144

== ENCOUNTER → 2022-01-01 08:32 | Outpatient (BNVA) | payer MEDICAID, SELFPAY | PROVIDERS: PCP Nurse Practitioner Family; Visit Provider Nurse Practitioner Women's Health | DX: N92.6 Irregular menstruation, unspecified (principal) | CPT/HCPCS: 81025 ==

== ENCOUNTER → 2022-01-21 09:55 | Outpatient (BNVA) | payer MEDICAID, SELFPAY | PROVIDERS: PCP Nurse Practitioner Family; Visit Provider Obstetrics & Gynecology | DX: Z34.81 Encounter for supervision of other normal pregnancy, first trimester (principal) | CPT/HCPCS: 80307; 84315; 85027; 86592; 86762; 86803; 86850; 86900; 87086; 87340; 87806 ==

== ENCOUNTER → 2022-02-18 09:25 | Outpatient (BNVA) | payer MEDICAID, SELFPAY | PROVIDERS: PCP Nurse Practitioner Family; Visit Provider Obstetrics & Gynecology | DX: Z34.81 Encounter for supervision of other normal pregnancy, first trimester (principal) | CPT/HCPCS: 84315; 87491; 87591 ==

== ENCOUNTER → 2022-04-03 08:05 | Outpatient (BNVA) | payer MEDICAID, SELFPAY | PROVIDERS: PCP Nurse Practitioner Family; Visit Provider Obstetrics & Gynecology | DX: Z34.92 Encounter for supervision of normal pregnancy, unspecified, second trimester (principal); Z3A.19 19 weeks gestation of pregnancy | CPT/HCPCS: 76805 ==

== ENCOUNTER → 2022-05-31 11:22 | Outpatient (BNVA) | payer MEDICAID, SELFPAY | PROVIDERS: PCP Nurse Practitioner Family; Visit Provider Obstetrics & Gynecology | DX: Z34.83 Encounter for supervision of other normal pregnancy, third trimester (principal) | CPT/HCPCS: 82950; 84315; 85025 ==

== ENCOUNTER 2022-06-05 13:38 | Outpatient (CLI) | payer MEDICAID, SELFPAY ==
[2022-06-05] VITALS (9 sets, daily range): BP systolic 98–123; BP diastolic 53–61; PULSE 70–97; RESP 15; TEMP 36.9; BMI 28.7
== END 2022-06-05 16:24 | disposition home or self-care (01) ==
LOC: OPOB 13:39 → OBGYN 13:40
PROVIDERS: PCP Nurse Practitioner Family; Visit Provider Obstetrics & Gynecology
DX: O26.899 Other specified pregnancy related conditions, unspecified trimester (principal); Z3A.00 Weeks of gestation of pregnancy not specified; R10.9 Unspecified abdominal pain
CPT/HCPCS: 59025; 99211

== ENCOUNTER → 2022-06-07 08:37 | Outpatient (BNVA) | payer MEDICAID, SELFPAY | PROVIDERS: PCP Nurse Practitioner Family; Visit Provider Obstetrics & Gynecology | DX: Z34.90 Encounter for supervision of normal pregnancy, unspecified, unspecified trimester (principal) | CPT/HCPCS: 82951; 82952 ==

== ENCOUNTER 2022-06-22 21:44 | Outpatient (CLI) | payer MEDICAID, SELFPAY ==
[2022-06-05 14:00] VITALS: TEMP 36.9
[2022-06-22] VITALS (15 sets, daily range): BP systolic 93–119; BP diastolic 52–57; PULSE 62–81; RESP 16; TEMP 36.1; O2SAT 97–99
[2022-06-22] MEDS: acetaminophen 325 mg Tablet 650 MG PO (22:44)
[2022-06-23 00:04] VITALS: PULSE 65; O2SAT 99
[2022-06-23 00:06] VITALS: BP 95/53; PULSE 61
[2022-06-23 00:09] VITALS: PULSE 64; O2SAT 98
[2022-06-23 00:14] VITALS: PULSE 67; O2SAT 98
[2022-06-23 00:26] VITALS: BP 95/53; PULSE 67; RESP 16; O2SAT 98
== END 2022-06-23 00:25 | disposition home or self-care (01) ==
LOC: OPOB 21:51 → OBGYN 21:52
PROVIDERS: PCP Nurse Practitioner Family; Visit Provider Obstetrics & Gynecology
DX: O26.899 Other specified pregnancy related conditions, unspecified trimester (principal); Z3A.00 Weeks of gestation of pregnancy not specified; R10.9 Unspecified abdominal pain
CPT/HCPCS: 59025; 99211

== ENCOUNTER → 2022-07-01 14:20 | Outpatient (BNVA) | payer MEDICAID, SELFPAY | PROVIDERS: PCP Nurse Practitioner Family; Visit Provider Obstetrics & Gynecology | DX: Z34.90 Encounter for supervision of normal pregnancy, unspecified, unspecified trimester (principal) | CPT/HCPCS: 84315; 87086 ==

== ENCOUNTER 2022-07-04 08:00 | Outpatient (CLI) | payer MEDICAID, SELFPAY ==
[2022-07-04 08:00] VITALS: BMI 29.5
[2022-07-04 08:17] VITALS: BP 108/58; PULSE 81
[2022-07-04 08:35] VITALS: BP 98/53; PULSE 85
[2022-07-04 08:55] VITALS: BP 110/55; PULSE 81
[2022-07-04 09:42] VITALS: BP 110/55; PULSE 81; RESP 18
== END 2022-07-04 09:20 | disposition home or self-care (01) ==
LOC: OPOB 08:08 → OBGYN 08:08
PROVIDERS: PCP Nurse Practitioner Family; Visit Provider Obstetrics & Gynecology
DX: O26.899 Other specified pregnancy related conditions, unspecified trimester (principal); Z3A.00 Weeks of gestation of pregnancy not specified
CPT/HCPCS: 59025; 99211

== ENCOUNTER 2022-07-15 19:31 | Outpatient (CLI) | payer MEDICAID, SELFPAY ==
[2022-07-15 19:40] VITALS: TEMP 36.5
[2022-07-15 19:41] VITALS: BP 124/64; PULSE 98
[2022-07-15 19:45] VITALS: RESP 17
[2022-07-15 19:48] LABS: Nitrazine Paper, PH Negative
[2022-07-15 21:52] VITALS: BP 105/52; PULSE 88
[2022-07-15 21:53] VITALS: BP 105/52; PULSE 88
== END 2022-07-15 21:53 | disposition home or self-care (01) ==
LOC: OPOB 19:31 → OBGYN 19:32
PROVIDERS: PCP Nurse Practitioner Family; Visit Provider Obstetrics & Gynecology
DX: O26.899 Other specified pregnancy related conditions, unspecified trimester (principal); Z3A.00 Weeks of gestation of pregnancy not specified; N89.8 Other specified noninflammatory disorders of vagina
CPT/HCPCS: 59025; 83986; 99211

== ENCOUNTER → 2022-07-30 10:00 | Outpatient (BNVA) | payer MEDICAID, SELFPAY | PROVIDERS: PCP Nurse Practitioner Family; Visit Provider Obstetrics & Gynecology | DX: Z34.83 Encounter for supervision of other normal pregnancy, third trimester | CPT/HCPCS: 84315; 87081 ==

== ENCOUNTER 2022-08-04 14:37 | Outpatient (CLI) | payer MEDICAID, SELFPAY ==
[2022-08-04 14:37] VITALS: BMI 30.2
[2022-08-04 14:54] VITALS: BP 106/54; PULSE 80; TEMP 36.1
[2022-08-04 14:57] VITALS: RESP 16
[2022-08-04 15:04] LABS: Nitrazine Paper, PH Negative
[2022-08-04 15:11] VITALS: BP 105/54; PULSE 81
[2022-08-04 15:24] VITALS: BP 105/54; PULSE 81; RESP 16; TEMP 36.1
== END 2022-08-04 15:25 | disposition home or self-care (01) ==
LOC: OPOB 14:40 → OBGYN 14:41
PROVIDERS: PCP Nurse Practitioner Family; Visit Provider Family Medicine
DX: Z34.83 Encounter for supervision of other normal pregnancy, third trimester (principal)
CPT/HCPCS: 59025; 83986; 99211

== ENCOUNTER 2022-08-09 12:15 | Outpatient (CLI) | payer MEDICAID, SELFPAY ==
[2022-08-09 12:15] VITALS: BMI 30.4
[2022-08-09 12:45] VITALS: BP 102/56; PULSE 86
[2022-08-09 13:05] VITALS: BP 106/56; PULSE 84
[2022-08-09 13:10] LABS: Actim Prom Negative
[2022-08-09 13:15] LABS: Specific Gravity, Urine 1.005 (1.005-1.030); Urine Appearance Clear (CLEAR); Urine Color Yellow (Yellow); pH Urine 6 (5-7)
[2022-08-09 13:16] LABS: Add Urine Culture? No; Bacteria Urine TRACE /hpf; Bilirubin Urine Neg (Negative); Blood Urine Neg (Negative); Glucose Urine UA Norm (Normal); Ketones Urine Negative (Negative); Leukocyte Esterase Urine Negative (Negative); Nitrate Urine Negative (Negative); Protein Urine Neg (Negative); RBC Urine 0-4 /hpf (0-2); Squamous Epithelial Cell Urine 0-4 /hpf (0-5); Urobilinogen Urine Norm (Negative); WBC Urine 0-4 /hpf (0-5)
[2022-08-09 13:25] VITALS: BP 110/57; PULSE 74
[2022-08-09 13:56] VITALS: BP 110/57; PULSE 74; RESP 16
== END 2022-08-09 13:50 | disposition home or self-care (01) ==
LOC: OPOB 12:30 → OBGYN 12:32
PROVIDERS: PCP Nurse Practitioner Family; Visit Provider Obstetrics & Gynecology
DX: O26.853 Spotting complicating pregnancy, third trimester (principal); O26.893 Other specified pregnancy related conditions, third trimester; Z3A.38 38 weeks gestation of pregnancy; R35.0 Frequency of micturition
CPT/HCPCS: 59025; 81001; 84112; 99211

== ENCOUNTER 2022-08-14 23:40 | Inpatient (IN) | payer MEDICAID, SELFPAY ==
[2022-08-14 23:59] VITALS: BP 106/52; PULSE 86
[2022-08-15] VITALS (47 sets, daily range): BP systolic 87–126; BP diastolic 49–80; PULSE 53–85; RESP 16–18; TEMP 36.6–37; O2SAT 86–100; BMI 49.1
[2022-08-15 00:34] LABS: Amphetamines Screen Urine Negative (Negative); Barbiturates Screen Urine Negative (Negative); Benzodiazepines Screen Urine Negative (Negative); Cocaine Screen Urine Negative (Negative); Opiate Screen Urine Negative (Negative); PCP Screen Urine Negative (Negative); THC Screen Urine Negative (Negative)
[2022-08-15] MEDS: miSOPROStol 100 mcg tablet 25 MCG VAGINAL ×2 (00:38→07:43)
[2022-08-15 01:15] LABS: Basophils % 0.3 %; Eosinophils # 0.1 10^3/uL (0.0-0.8); Hematocrit 30.3 % (37.0-47.0); Hemoglobin 9.5 g/dL (11.5-15.3); Lymphocytes # 2.4 10^3/uL (0.8-4.8); Lymphocytes % 22.6 %; Mean Corpuscular HGB Conc 31.4 g/dL (30.0-36.0); Mean Corpuscular Hemoglobin 24.7 pg (28.0-34.0); Mean Corpuscular Volume 78.9 fl (81-99); Mean Platelet Volume 11.8 fL (7.4-10.4); Monocytes # 0.7 10^3/uL (0.2-0.9); Monocytes % 6.3 %; Neutrophils # 7.36 10^3/uL (1.8-7.7); Neutrophils % 69.1 %; Nucleated Red Blood Cells % 0 %; Platelet Count 245 10^3/cmm (130-400); Red Blood Count 3.84 10^6/uL (4.1-5.3); Red Cell Distribution Width 14.6 % (12.1-15.1); White Blood Count 10.7 10^3/uL (4.0-10.0)
[2022-08-15] MEDS: dextrose 5%-lactated ringers 1,000 ML 125 ML IV (04:40)
--- NOTE | 2022-08-15 08:25 | PM.OPHPUD ---
Labor & Delivery H&P Update Date of Procedure: August 15, 2022 Date H&P Performed: 08/13/22 H&P update information: I have reviewed H&P completed within last 30 days, I have examined patient prior to procedure and No changes to prior documentation Admission Diagnosis: iup@39 2/7 weeks, induction of labor at term Preop diagnosis: IUP Related Problem List Diagnoses (1) Normal :
[2022-08-15] MEDS: fentaNYL 50 mcg/mL INJ 2mL IVP (13:33)
[2022-08-15] MEDS: lactated ringers 1,000 ML 999 ML IV (13:56)
--- NOTE | 2022-08-15 14:53 | ANES.PREANE2 ---
Pre-Anesthetic Assessment Height/Weight: Height 1.55 m Weight 117.934 kg Temp Pulse Resp BP Pulse Ox O2 Del Method 98.0 F 61 18 126/73 100 08/15/22 12:17 08/15/22 14:39 08/15/22 13:33 08/15/22 14:39 08/15/22 14:34 08/15/22 01:09 Preop Diagnosis: IUP Familial anesthetic complications: none Was Beta Rick taken within 24 hours: N/A Was Clonidine taken within 24 hours: N/A Social No alcohol Exam alert, oriented x 3, clear to auscultation bilaterally and regular rate & rhythm Airway Submandibular: within normal limits Cervical ROM: within normal limits Mallampati: Class II Neuropsych Anxiety and Depression Anesthetic Plan ASA status: 2 Medications/Allergies Home Medications Medication Instructions Recorded Confirmed Last Taken Type breast pump #1 ea 08/12/22 08/15/22 Unknown Rx Allergies Allergy/AdvReac Type Severity Reaction Status Date / Time adhesive Allergy ALGY-Hives Verified 08/15/22 01:10 Penicillins Allergy Unknown Verified 08/15/22 01:10 Current Medications Generic Name Dose Route Start Last Admin Trade Name Freq PRN Reason Stop Dose Admin Fentanyl 25 - 100 mcg 08/15/22 00:13 08/15/22 13:33 Fentanyl 50 Mcg/Ml Inj 2ml IVP 25 mcg Q1H PRN Administration SEVERE PAIN Lactated Ringer's 1,000 mls @ 999 mls/hr 08/15/22 00:13 08/15/22 13:56 Lactated Ringers IV 999 mls/hr .Q1H1M PRN Administration BLEEDING Dextrose/Lactated Ringer's 1,000 mls @ 125 mls/hr 08/15/22 00:15 08/15/22 05:25 Dextrose 5%-Lactated Ringers IV 0 mls/hr .Q8H IDA Infusion Ropivacaine 200 mg in 100 mls @ 13 mls/hr 08/15/22 13:45 08/15/22 14:32 Naropin Premix EPIDURAL 13 mls/hr .Q7H42M IDA Administration PFSH Anesthesia Medical History ADHD managed by PCP with jose-- she stopped taking this upon positive test in Dec 2021. Foot trauma Generalized anxiety disorder has seen [facility] [place]. Feels managed w/o medication. MDD (major depressive disorder) No pertinent past medical history neghx: htn,dm,thyroid,dvt/pe PCP: Rosie Warner depression Surgical History Hx of foot surgery piece of glass removed as teenager [place] teeth removed Family History Grandmother Breast cancer Maternal---dx age unknown Paternal--dx age unknown Stroke Paternal Thyroid disease Paternal Father Hypercholesteremia Hypertension Other Diabetes Heart disease Denies family history of Colon cancer Ovarian cancer Uterine cancer Social History Smoking and tobacco status: former smoker Female Reproductive History : 2 Data Anesthesia : 08/15/22 00:12 Short CBC 08/15/22 Range/Units 00:12 WBC 10.7 H (4.0-10.0) 10^3/uL Hgb 9.5 L (11.5-15.3) g/dL Hct 30.3 L (37.0-47.0) % MCV 78.9 L (81-99) fl Plt Count 245 (130-400) 10^3/cmm Neut % (Auto) 69.1 % Neut # (Auto) 7.36 (1.8-7.7) 10^3/uL Cardiac Studies: No Data to Display Anesthesia Procedures Epidural Time Out Performed: Yes Consents Signed: Procedure Consent Consent: requested by attending/covering physician, from patient, risks and benefits reviewed and patient agrees to proceed Lumbar Level: L3-L4 Epidural position: sitting Epidural procedure: sterile prep of area, 1% lidocaine to numb the area, 18 g needle, neg for paresthesia, test dose given, 1.5% xylocaine 1:200k epi, placed PCEA, no systemic response, sterile dressing applied and 0.2% Ropiavacaine @ mls/hr (13) Additional Comments: USMAN at 5cm, cath at 10cm
[2022-08-15] MEDS: oxytocin 30 UNIT/500 ML BAG 600 UNIT IV (15:35)
--- NOTE | 2022-08-15 16:52 | PM.DELIVERY ---
Delivery Note: Date of delivery: August 15, 2022 Pre-delivery diagnoses: iup@ [id number], induction at term. Post-delivery diagnoses: same-delivered Procedure: Delivering Physician: Handy Estimated blood loss (mL): 30 Findings: Term female in the cephalic presentation Pre-Delivery Course: The patient was admitted for induction at term. She received two doses of cytotec and began to labor on her own. She received an epidural for pain management. She had SROM and then achieved complete cervical dilation. She began to push. Delivery: The patient had complete cervical dilation and began to push. The head delivered in the PAULY position over an intact perineum under epidural anesthesia. A single nuchal cord was reduced at the perineum. The nose and mouth were bulb suctioned. The shoulders and body delivered atraumatically. The baby was placed onto the mother's abdomen. The cord was clamped and cut. The placenta delivered spontaneously. It was inspected and found to be intact. Inspection of the perineum revealed a small subclitoral laceration which was repaired with 2 interrupted sutures.. Estimated blood loss 30 mL. Apgars on baby were [ ] at 1 minute and 9 at 5 minutes. Weight of baby is 6 pounds 9 ounces. Mother and baby were stable post delivery. History History History 2 Term 0 1 Miscarriages/Ectopic 0 Living Children 1 Coding Level of Care Code Acute Insurance Compliance Analyst for Chg Felix
[2022-08-15] MEDS: docusate sodium 100 mg Capsule PO (19:03)
[2022-08-15] MEDS: ibuprofen 800 mg tablet PO (20:31)
[2022-08-16 01:27] VITALS: BP 101/68; PULSE 64; O2SAT 100
[2022-08-16 04:36] LABS: Hematocrit 30.5 % (37.0-47.0); Hemoglobin 9.5 g/dL (11.5-15.3); Mean Corpuscular HGB Conc 31.1 g/dL (30.0-36.0); Mean Corpuscular Hemoglobin 25.1 pg (28.0-34.0); Mean Corpuscular Volume 80.7 fl (81-99); Mean Platelet Volume 11.3 fL (7.4-10.4); Platelet Count 218 10^3/cmm (130-400); Red Blood Count 3.78 10^6/uL (4.1-5.3); Red Cell Distribution Width 14.7 % (12.1-15.1); White Blood Count 16.1 10^3/uL (4.0-10.0)
[2022-08-16 04:37] VITALS: BP 95/57; PULSE 59; RESP 17; TEMP 36.7; O2SAT 97
--- NOTE | 2022-08-16 07:17 | ANE.PACU2 ---
Inpatient post-anesthesia follow up: Airway intact: Yes Vital signs: Temperature 98.1 F Pulse Rate 59 Respiratory Rate 17 Blood Pressure 95/57 Pulse Oximetry 97 Oxygen Delivery Me thod Room Air Oxygen Flow Rate Fraction of Inspir ed Oxygen Hydration adequate: Yes Nausea and vomiting: No Pain level: 2 Mental status: Baseline
--- NOTE | 2022-08-16 08:42 | PM.DCS ---
Discharge Providers Date of Admission: 08/15/22 13:41 Date of Discharge: August 16, 2022 Attending Provider at Admission: Jannette Murrell MD Attending Provider at Discharge: Jannette Murrell MD Primary Care Provider: FLOR Coyne Diagnoses at Discharge Discharge Diagnosis (1) Normal : Status: Acute Hospital Course Hospital Course The patient was admitted for induction at term. She had spontaneous delivery of a term . She did well and is requesting discharge to home on day #1 Physical Exam Narrative: No concerns today. Ambulating, tolerating a regular diet. Normal lochia. Const: COMMON NORMALS: no acute distress, average body habitus, patient oriented x3, no limitations, healthy appearing, alert and well nourished GENERAL APPEARANCE: cooperative, comfortable, well kempt and well developed ORIENTATION/CONSCIOUSNESS: Yes awake, Yes oriented to person, Yes oriented to place and Yes oriented to time Resp: COMMON NORMALS: normal respiratory effort EFFORT & INSPECTION: Yes able to speak in complete sentences GI: COMMON NORMALS: Soft to palpation and non-tender PALPATION: Yes Soft to palpation Extremity: COMMON NORMALS: no clubbing, cyanosis or edema and no calf tenderness Neuro: COMMON NORMALS: patient oriented x3 SENSORIUM/ORIENTATION: Yes alert, Yes oriented to person, Yes oriented to place and Yes oriented to time Psych: APPEARANCE: Yes well kempt Urinary Catheter Management: Flower: Cath Placed During This Visit: yes, but has since been removed by the nurse Reason for Continuing Indwelling Catheter: Decision to DC Catheter Urinary Catheter Date of Insertion: 08/15/22 Urinary Catheter Time of Insertion: 14:31 Date Urinary Catheter Removed: 08/15/22 Time Urinary Catheter Discontinued: 15:28 Discharge Data Studies Completed and Pending Laboratory Results WBC 16.1 10^3/uL (4.0-10.0) H 08/16/22 03:47 RBC 3.78 10^6/uL (4.1-5.3) L 08/16/22 03:47 Hgb 9.5 g/dL (11.5-15.3) L 08/16/22 03:47 Hct 30.5 % (37.0-47.0) L 08/16/22 03:47 MCV 80.7 fl (81-99) L 08/16/22 03:47 MCH 25.1 pg (28.0-34.0) L 08/16/22 03:47 MCHC 31.1 g/dL (30.0-36.0) 08/16/22 03:47 RDW 14.7 % (12.1-15.1) 08/16/22 03:47 Plt Count 218 10^3/cmm (130-400) 08/16/22 03:47 MPV 11.3 fL (7.4-10.4) H 08/16/22 03:47 Neut % (Auto) 69.1 % 08/15/22 00:12 Lymph % (Auto) 22.6 % 08/15/22 00:12 [place] % (Auto) 6.3 % 08/15/22 00:12 Eos % (Auto) 1.0 % 08/15/22 00:12 Baso % (Auto) 0.3 % 08/15/22 00:12 Neut # (Auto) 7.36 10^3/uL (1.8-7.7) 08/15/22 00:12 Lymph # (Auto) 2.4 10^3/uL (0.8-4.8) 08/15/22 00:12 [place] # (Auto) 0.7 10^3/uL (0.2-0.9) 08/15/22 00:12 Eos # (Auto) 0.1 10^3/uL (0.0-0.8) 08/15/22 00:12 Baso # (Auto) 0.0 10^3/uL (0.0-0.1) 08/15/22 00:12 Nucleated RBC % (auto) 0 % 08/15/22 00:12 Nucleated RBCs # 0.0 /100WBC 08/15/22 00:12 Urine Opiates Screen Negative ng/mL (Negative) 08/15/22 00:00 Ur Barbiturates Screen Negative ng/mL (Negative) 08/15/22 00:00 Ur Phencyclidine Scrn Negative ng/mL (Negative) 08/15/22 00:00 Ur Amphetamines Screen Negative ng/mL (Negative) 08/15/22 00:00 U Benzodiazepines Scrn Negative ng/mL (Negative) 08/15/22 00:00 Urine Cocaine Screen Negative ng/mL (Negative) 08/15/22 00:00 U Marijuana (THC) Screen Negative ng/mL (Negative) 08/15/22 00:00 Vitals Last Vital Signs Temp 98.1 F 08/16/22 04:37 Pulse 59 L 08/16/22 04:37 Resp 17 08/16/22 04:37 BP 95/57 08/16/22 04:37 Pulse Ox 97 08/16/22 04:37 O2 Del Method 08/16/22 04:37 Discharge Plan Discharge Patient Disposition: Home Condition: Stable Prescriptions: New ibuprofen 800 mg Tablet 800 mg PO TID Qty: 30 0RF Continued (DME) breast pump Device See Rx Instructions .Route Qty: 1 0RF Rx Instructions: As directed Discharge Orders: Discharge Order (Routine); Ordered 08/16/22 Ordered By: Jannette Murrell Referrals: Jannette Murrell MD [Physician] - 08/26/22 7:45 am Patient Instructions: Depression (DC), Bleeding (DC), Preeclampsia and Eclampsia After Delivery (GEN), Hemorrhage (DC), OB Discharge Report, OB Food/Drug Interaction Guide, OB Care at Home, Opioid Safety, OB Home Care, OB Vaginal Deliveries - [facility] Discharge Attestations Time Spent in Discharge Care*: less than 30 min Quality Metrics Clinical Quality Measures [ No reported AMI, CVA or VTE this stay] Coding Level of Care Code Acute Chg FW DC note Diagnoses Normal Z34.90
[2022-08-16] MEDS: ibuprofen 800 mg tablet PO ×2 (09:59→13:57)
[2022-08-16] MEDS: docusate sodium 100 mg Capsule PO (09:59)
[2022-08-16] MEDS: prenatal vitamin Capsule 1 CAP PO (09:59)
[2022-08-16 10:00] VITALS: BP 107/70; PULSE 64; RESP 18; TEMP 36.9; O2SAT 99
[2022-08-16 16:45] VITALS: BP 98/57; PULSE 70; RESP 17; TEMP 36.8; O2SAT 98
[2022-08-16 17:43] VITALS: BP 98/57; PULSE 70; RESP 17; TEMP 36.8; O2SAT 98
== END 2022-08-16 17:44 | disposition home or self-care (01) | DRG 807 ==
PROVIDERS: Admitting Provider Obstetrics & Gynecology; PCP Nurse Practitioner Family; Visit Provider Obstetrics & Gynecology
DX: O71.89 Other specified obstetric trauma (principal); Z37.0 Single live birth; Z3A.38 38 weeks gestation of pregnancy
CPT/HCPCS: 36415; 51702; 59025; 59409; 80306; 85025; 85027; G0378; G0379; J2795; J3010

== ENCOUNTER 2022-10-15 10:35 | Day surgery (SDC) | payer MEDICAID, SELFPAY ==
[2022-10-14 15:23] VITALS: BMI 27.0
[2022-10-15] VITALS (7 sets, daily range): BP systolic 93–108; BP diastolic 45–94; PULSE 55–83; RESP 14–18; TEMP 36.6–36.7; O2SAT 98–100
--- NOTE | 2022-10-15 11:32 | P.ANESASSM_ITS ---
Pre-Anesthetic Assessment Height/Weight: Height 1.55 m Weight 64.864 kg Temp Pulse Resp BP Pulse Ox O2 Del Method 98.0 F 63 18 108/62 98 10/15/22 11:10 10/15/22 11:10 10/15/22 11:10 10/15/22 11:10 10/15/22 11:10 10/15/22 11:15 Preop Diagnosis: sterilization request Operation Date: 10/15/22 12:15 Proposed Procedures p Laparoscopic bilateral salpingectomy 32929,Z30.2(Bilateral) - Jannette Murrell MD Familial anesthetic complications: None Was Beta Rick taken within 24 hours: N/A Was Clonidine taken within 24 hours: N/A Last intake: Intake Last Liquid Date 10/14/22 Last Liquid Time 23:30 Last Solid Date 10/14/22 Last Solid Time 19:00 Social Tobacco and No alcohol Exam alert, oriented x 3, clear to auscultation bilaterally and regular rate & rhythm Airway Mallampati: Class II Dentition: full Neuropsych ADHD Anesthetic Plan ASA status: 2 Anesthesia: General Risk of > 500 ml blood loss (7ml/kg in children): No Medications/Allergies Home Medications Medication Instructions Recorded Confirmed Last Taken Type breast pump #1 ea 08/12/22 10/10/22 Unknown Rx cetirizine 10 mg tablet (Zyrtec) 10 mg PO DAILY PRN allergy 08/29/22 10/14/22 09/11/22 Rx symptoms #30 tabs Allergies Allergy/AdvReac Type Severity Reaction Status Date / Time milk Allergy Unknown unknown Verified 10/10/22 08:47 wheat Allergy Unknown unknown Verified 10/10/22 08:47 adhesive Allergy ALGY-Hives Verified 10/10/22 08:47 Penicillins Allergy Unknown Verified 10/10/22 08:47 pumpkin Allergy ADR-Itching Verified 10/10/22 08:47 egg white Allergy Unknown unknown Uncoded 10/10/22 08:47 shrimp Allergy Unknown Unknown Uncoded 10/10/22 08:47 [facility] Anesthesia Medical History ADHD managed by PCP with jose-- she stopped taking this upon positive test in Dec 2021. Foot trauma Generalized anxiety disorder has seen [facility] [place]. Feels managed w/o medication. MDD (major depressive disorder) No pertinent past medical history neghx: htn,dm,thyroid,dvt/pe PCP: Rosie Warner depression Surgical History Hx of foot surgery piece of glass removed as teenager [place] teeth removed Family History Grandmother Breast cancer Maternal---dx age unknown Paternal--dx age unknown Stroke Paternal Thyroid disease Paternal Father Hypercholesteremia Hypertension Other Diabetes Heart disease Denies family history of Colon cancer Ovarian cancer Uterine cancer Social History Smoking and tobacco status: current every day smoker Female Reproductive History Date of last menstrual period: 09/28/22 Data Anesthesia Cardiac Studies: No Data to Display
[2022-10-15] MEDS: sodium chloride 0.9% 1,000 ML 30 ML IV (11:44)
[2022-10-15] MEDS: acetaminophen 1,000 MG/100 ML PIGGYBACK 400 MG IV (11:45)
[2022-10-15] MEDS: phenazopyridine 100 mg Tablet 200 MG PO (11:46)
[2022-10-15] MEDS: CELEcoxib 200 mg Capsule 400 MG PO (11:46)
[2022-10-15] MEDS: scopolamine 1.5 Patch 1 PATCH TRANSDERMA (11:46)
[2022-10-15] MEDS: gabapentin 300 mg Capsule PO (11:46)
--- NOTE | 2022-10-15 12:43 | W.PM.OPSUD ---
Surgery/Procedure H&P Update DATE OF PROCEDURE: October 15, 2022 DATE H&P PERFORMED: 10/10/22 H&P UPDATE INFORMATION: I have reviewed H&P completed within last 30 days, I have examined patient prior to procedure and No changes to prior documentation PREOP DIAGNOSIS: sterilization request PLANNED PROCEDURE: Operation Date: 10/15/22 12:15 Proposed Procedures p Laparoscopic bilateral salpingectomy 03308,Z30.2(Bilateral) - Jannette Murrell MD Related Problem List Diagnoses (1) Consultation for sterilization:
[2022-10-15] MEDS: ceFAZolin 2,000 MG in sodium chloride 0.9% (plus) 50 ML 100 MG IV (12:46)
--- NOTE | 2022-10-15 14:08 | PM.OP ---
Operative Report Date of procedure: October 15, 2022 Pre-op diagnosis: Preop Diagnosis sterilization request Post-op diagnosis: same Post-op findings: normal appearing uterus, tubes and ovaries Procedure done: Laparoscopic bilateral salpingectomy Specimens removed/disposition: bilateral fallopian tubes to pathology Surgeon: Jannette Murrell Anesthesia: General Estimated blood loss (mL): 10 IV fluids (mL): 800 Urine output (mL): 100 Complications: small perforation of Zumi uterine manipulator to fundus of uterus Findings: 8 week sized anteverted uterus, normal appearing tubes and ovaries Condition: stable Disposition: PACU Procedure: The patient was taken to the operating room where general anesthesia was administered and found to be adequate. She was prepped and draped in the normal sterile fashion in the dorsal lithotomy position in [facility]. A Flower catheter was placed. A weighted speculum was placed into the vagina and the anterior lip of the cervix grasped with a single-tooth tenaculum. A ZUMI uterine manipulator was placed. The gloves were changed and attention was turned to the laparoscopic portion of the case. A 5 mm infraumbilical incision was made. The 5 mm trocar was placed using the easy view trocar. Intra-abdominal placement was confirmed and CO2 gas was used to insufflate the abdomen. Using direct visualization and illumination of the abdominal wall, two 5 mm incisions were made low and lateral. One on the left and one on the right. The 5mm trochars were then placed under direct visualization. Using the uterine manipulator and the grasper, the fallopian tubes were identified. It was at this time that I noticed that the Zumi balloon had pierced the uterine fundus. There had been a small amount of bleeding, but it didn't appear to be actively bleeding. The zumi was removed and replaced by a sponge stick. Suction irrigation was used to assure that there was no current bleeding. Using the laparoscopic cautery, the fallopian tube was clamped cauterized and cut. First on the right, then on the left. There was excellent hemostasis post removal of the bilateral tubes. Pictures were taken. All instruments were removed. One final look at the uterus showed that it was hemostatic and no active bleeding. The abdomen was desufflated. The incisions were closed with 4-0 Vicryl. 10 ml of 1/2% bupivicaine was used around the incisions. The patient tolerated the procedure well. Sponge lap and needle counts were correct x3. She was taken to the recovery room in stable condition.
--- NOTE | 2022-10-15 14:22 | PM.DCS ---
Discharge Providers Date of Admission: 08/15/22 Date of Discharge: October 15, 2022 Attending Provider at Admission: Dr. Murrell Attending Provider at Discharge: Jannette Murrell MD Primary Care Provider: FLOR Coyne Diagnoses at Discharge Discharge Diagnosis (1) Consultation for sterilization: Status: Acute Reason for Visit Reason for Visit: Z30.2 Hospital Course Hospital Course The patient was admitted for surgery. She did well postoperatively and was ready for discharge after surgery. Physical Exam Urinary Catheter Management: Flower: Cath Placed During This Visit: yes Urinary Catheter Date of Insertion: 10/15/22 Urinary Catheter Time of Insertion: 13:14 Discharge Data Studies Completed and Pending Pending at discharge Category Date Time Status Urine Culture Routine Lab 10/15/22 13:16 Received Pathology: Surgical [PTH] Routine Pth 10/15/22 14:02 Ordered Vitals Last Vital Signs Temp 98.0 F 10/15/22 11:10 Pulse 63 10/15/22 11:10 Resp 18 10/15/22 11:10 BP 108/62 10/15/22 11:10 Pulse Ox 98 10/15/22 11:10 O2 Del Method 10/15/22 11:15 Discharge Plan Discharge Condition: Stable Prescriptions: New hydrocodone-acetaminophen 5-325 mg tablet 1 tab PO Q4H Qty: 30 0RF ibuprofen 800 mg tablet 800 mg PO Q8H Qty: 30 0RF Colace 100 mg capsule 100 mg PO TID Qty: 90 0RF Continued cetirizine [Zyrtec] 10 mg tablet 10 mg PO DAILY PRN (Reason: allergy symptoms) Qty: 30 1RF (DME) breast pump Device See Rx Instructions .Route Qty: 1 0RF Rx Instructions: As directed Discharge Orders: Discharge Order (Routine); Ordered 10/15/22 Ordered By: Jannette Murrell Discharge Attestations Time Spent in Discharge Care*: less than 30 min Quality Metrics Clinical Quality Measures [ No reported AMI, CVA or VTE this stay] Coding Level of Care Code Acute Chg FW DC note Diagnoses Consultation for sterilization Z30.09
--- NOTE | 2022-10-15 14:28 | SUR.PHASEI ---
1414 PT TO PACU WARM BLANKETS X 3 TO PT, IV TO RT HAND #20 WITH NS 100 ML UP AT KVO RATE PER GRAVITY, MONITOR SR WITH NO ECTOPY ABDOMEN SOFT WITH 3 SITES D/I WITH SKIN GLUE. BILAT SCDS ON. ID BAND TO LT WRIST, PT ID'D WITH 2 IDENTIFIERS.
[2022-10-15] MEDS: HYDROcodone-acetaminophen 5-325 mg Tablet 1 TAB PO (15:20)
--- NOTE | 2022-10-15 16:27 | ANE.PACU2 ---
Inpatient post-anesthesia follow up: Airway intact: Yes Vital signs: Temperature 98 F Pulse Rate 55 Respiratory Rate 17 Blood Pressure 97/61 Pulse Oximetry 100 Oxygen Delivery Me thod Room Air Oxygen Flow Rate 8 Fraction of Inspir ed Oxygen Hydration adequate: Yes Nausea and vomiting: No Pain level: 1 Mental status: Baseline
== END 2022-10-15 15:45 | disposition home or self-care (01) ==
PROVIDERS: PCP Nurse Practitioner Family; Visit Provider Obstetrics & Gynecology
PROC: (CPT 58661; principal; 2022-10-15 12:15)
DX: Z30.2 Encounter for sterilization (principal); F17.210 Nicotine dependence, cigarettes, uncomplicated
CPT/HCPCS: 58661; 81025; 87086; 88302; J0131; J0690; J1100; J2250; J2370; J2405; J2704; J2710; J3010; J3490; J7030

== ENCOUNTER 2022-10-15 17:44 | Emergency (ER) | payer MEDICAID, SELFPAY ==
[2022-10-15 17:52] VITALS: BP 103/67; PULSE 64; RESP 20; TEMP 36.7; O2SAT 97; BMI 27.0
--- NOTE | 2022-10-15 19:31 | CTR_ITS ---
PROCEDURE INFORMATION: Exam: CT Abdomen And Pelvis With Contrast Exam date and time: 10/15/2022 7:45 PM Age: 21 years old Clinical indication: Abdominal pain; Localized; Prior surgery; Surgery date: Post-operative (0-2 days); Surgery type: Tubal ligation on 10/15/2022. Patient HX: C/O lower abd pain with vaginal bleeding S/P tubal ligation today. ; Additional info: Vaginal bleeding/ post op TECHNIQUE: Imaging protocol: Computed tomography of the abdomen and pelvis with contrast. Radiation optimization: All CT scans at this facility use at least one of these dose optimization techniques: automated exposure control; mA and/or kV adjustment per patient size (includes targeted exams where dose is matched to clinical indication); or iterative reconstruction. Contrast material: OMNI 350; Contrast volume: 100 ml; Contrast route: INTRAVENOUS (IV); COMPARISON: ES surgery / GI images 10/15/2022 1:27 PM RADIATION DOSE METRICS: Total DLP (mGy-cm): 428.32 FINDINGS: Lungs: Lung bases are clear. Liver: The liver is normal. Gallbladder and bile ducts: The gallbladder is decompressed, preventing meaningful evaluation of wall thickness. There is no intrahepatic or extrahepatic bile duct dilation. Pancreas: The pancreas is unremarkable. Spleen: The spleen is unremarkable. Adrenal glands: The adrenal glands are unremarkable. Kidneys and ureters: Mild right hydronephrosis and diffuse hydroureter to the level of the pelvic inlet. No visible stones. Renal parenchymal enhancement pattern is normal. The left kidney is normal. Stomach and bowel: The stomach is unremarkable. The small bowel is nondilated. The colon is unremarkable. Appendix: The appendix is normal. Intraperitoneal space: : Small volume of intraperitoneal free air consistent with recent abdominal surgery. Trace pelvic free fluid. No fluid collection. Vasculature: The abdominal aorta is normal. There is no aneurysm or dissection. The portal, splenic and superior mesenteric veins are patent. Lymph nodes: There is no lymphadenopathy in the retroperitoneum, mesentery, pelvis or inguinal regions. Urinary bladder: The urinary bladder is unremarkable. Reproductive: The uterus and adnexa are unremarkable. Bones/joints: Bones are unremarkable. Soft tissues: Small volume of gas in the abdominal wall consistent with recent abdominal surgery. The abdominal wall is intact. CT/CT abdomen pelvis w con* [id number] IMPRESSION: 1. Mild right hydronephrosis and proximal hydroureter. Uncertain significance. No stone is visible. This could be related to postoperative edema in the right adnexa. Surgical injury and stricture of the ureter cannot be excluded. 2. Expected postoperative findings including trace intraperitoneal free air free fluid.
[2022-10-15] MEDS: iohexol 350 mg/mL 500 mL Btl (per mL) IV (19:48)
[2022-10-15 19:52] LABS: Basophils % 0.2 %; Hemoglobin 13.3 g/dL (11.5-15.3); Lymphocytes # 0.8 10^3/uL (0.8-4.8); Mean Corpuscular HGB Conc 29.6 g/dL (30.0-36.0); Mean Corpuscular Hemoglobin 24.4 pg (28.0-34.0); Mean Corpuscular Volume 82.6 fl (81-99); Mean Platelet Volume 10.9 fL (7.4-10.4); Monocytes % 0.4 %; Neutrophils # 9.05 10^3/uL (1.8-7.7); Neutrophils % 91.1 %; Nucleated Red Blood Cells % 0 %; Platelet Count 276 10^3/cmm (130-400); Red Blood Count 5.45 10^6/uL (4.1-5.3); Red Cell Distribution Width 17.9 % (12.1-15.1); White Blood Count 9.9 10^3/uL (4.0-10.0)
--- NOTE | 2022-10-15 19:54 | ED_ITS ---
HPI - Female Genitourinary General: Chief complaint: Vaginal Bleeding Stated complaint: postprocedure, bleeding Time Seen by Provider: 10/15/22 19:31 Source: patient Mode of arrival: ambulatory Limitations: no limitations History of Present Illness: 21-year-old female that had a tubal ligation today and states that since being home she has had some abdominal pain along with some vaginal bleeding she denies passing any clots but states she has had some bleeding and is soaked a pad. Denies any vomiting diarrhea denies any fevers rates her pain currently 4 out of 10 denies any worsening proved factors. Associated symptoms: Reports abdominal pain; Deny headache(s) Date of Last Menstrual Period: 09/28/22 Review of Systems Const: Denies: fever(s), chills, body aches or change in appetite Eyes: Denies: blurry vision or eye discomfort ENMT: Denies: throat pain or dental pain Card: Denies: chest pain Resp: Denies: dyspnea GI: Reports: abdominal pain : Reports: vaginal bleeding Musc: Denies: neck pain or back pain Skin/Breast: Denies: rash Neuro: Denies: headache(s) Psych: Denies: depression Cade/Lymph: Denies: easy bruising All/Imm: Denies: urticaria PFSH ED PFSH: Medical History ADHD managed by PCP with jose-- she stopped taking this upon positive test in Dec 2021. Foot trauma Generalized anxiety disorder has seen [facility] [place]. Feels managed w/o medication. MDD (major depressive disorder) No pertinent past medical history neghx: htn,dm,thyroid,dvt/pe PCP: Rosie Warner depression Surgical History Hx of foot surgery piece of glass removed as teenager [place] teeth removed Family History Grandmother Breast cancer Maternal---dx age unknown Paternal--dx age unknown Stroke Paternal Thyroid disease Paternal Father Hypercholesteremia Hypertension Other Diabetes Heart disease Denies family history of Colon cancer Ovarian cancer Uterine cancer Social History Smoking and tobacco status: current every day smoker Female Reproductive History: Date of last menstrual period: 09/28/22 Physical Exam Const: COMMON NORMALS: no acute distress, patient oriented x3 and healthy appearing HENMT: COMMON NORMALS: normocephalic and atraumatic HEAD & SCALP: normocephalic and atraumatic Eye: COMMON NORMALS: Equal, round and reactive pupils present and EOMs intact bilaterally PUPIL: Yes Equal, round and reactive pupils present Neck/C-Spine: COMMON NORMALS: full ROM and supple Chest: COMMONS NORMALS: normal inspection of the chest and normal palpation of entire chest wall Resp: COMMON NORMALS: normal respiratory effort, No retractions, No use of accessory muscles and clear to auscultation bilaterally AUSCULTATION: clear to auscultation bilaterally Cardio: COMMON NORMALS: regular rate, regular rhythm and No murmurs present (Cardio) RATE: regular rate RHYTHM: regular rhythm GI: COMMON NORMALS: Normal to inspection, nondistended, normoactive bowel sounds present, Soft to palpation, non-tender and no masses PALPATION: Yes Soft to palpation Extremity: COMMON NORMALS: normal to inspection and full ROM Neuro: COMMON NORMALS: patient oriented x3, moves all extremities and no focal motor deficits Psych: COMMON NORMALS: mental status grossly normal, Normal thought process present and cooperative THOUGHT PROCESS: Normal thought process present Skin: COMMON NORMALS: no rashes or lesions noted and no wounds GENERAL SKIN EXAM: no rashes or lesions noted Course Vital Signs: Vital signs: Vital Signs Temperature 98.1 F 10/15/22 17:52 Pulse Rate 64 10/15/22 17:52 Respiratory Rate 16 10/15/22 20:00 Blood Pressure 103/67 10/15/22 17:52 Pulse Oximetry 97 10/15/22 20:00 Oxygen Delivery Me thod 10/15/22 17:52 MDM - Female Medical Decision Making Patient presents here with vaginal bleeding she did have a tubal ligation here she is well-appearing here CT scan shows no acute abnormalities I did speak to the CAREER GUIDANCE COUNSELOR who did the procedure and informed her of the CT findings she states she was not near her ureters do not believe that she has a renal injury but will follow up with her she is to return here if worsening patient understands agrees to plan. Lab Data 10/15/22 19:36 10/15/22 19:36 Radiology Impressions Abdomen/Pelvis CT 10/15/22 19:31 IMPRESSION: 1. Mild right hydronephrosis and proximal hydroureter. Uncertain significance. No stone is visible. This could be related to postoperative edema in the right adnexa. Surgical injury and stricture of the ureter cannot be excluded. 2. Expected postoperative findings including trace intraperitoneal free air free fluid. Laboratory Results WBC 9.9 10^3/uL (4.0-10.0) 10/15/22 19:36 RBC 5.45 10^6/uL (4.1-5.3) H 10/15/22 19:36 Hgb 13.3 g/dL (11.5-15.3) 10/15/22 19:36 Hct 45.0 % (37.0-47.0) 10/15/22 19:36 MCV 82.6 fl (81-99) 10/15/22 19:36 MCH 24.4 pg (28.0-34.0) L 10/15/22 19:36 MCHC 29.6 g/dL (30.0-36.0) L 10/15/22 19:36 RDW 17.9 % (12.1-15.1) H 10/15/22 19:36 Plt Count 276 10^3/cmm (130-400) 10/15/22 19:36 MPV 10.9 fL (7.4-10.4) H 10/15/22 19:36 Neut % (Auto) 91.1 % 10/15/22 19:36 Lymph % (Auto) 8.0 % 10/15/22 19:36 Hunt % (Auto) 0.4 % 10/15/22 19:36 Eos % (Auto) 0.0 % 10/15/22 19:36 Baso % (Auto) 0.2 % 10/15/22 19:36 Neut # (Auto) 9.05 10^3/uL (1.8-7.7) H 10/15/22 19:36 Lymph # (Auto) 0.8 10^3/uL (0.8-4.8) 10/15/22 19:36 Hunt # (Auto) 0.0 10^3/uL (0.2-0.9) L 10/15/22 19:36 Eos # (Auto) 0.0 10^3/uL (0.0-0.8) 10/15/22 19:36 Baso # (Auto) 0.0 10^3/uL (0.0-0.1) 10/15/22 19:36 Nucleated RBC % (auto) 0 % 10/15/22 19:36 Nucleated RBCs # 0.0 /100WBC 10/15/22 19:36 Sodium 141 mmol/L (136-145) 10/15/22 19:36 Potassium 4.2 mmol/L (3.5-5.1) 10/15/22 19:36 Chloride 104 mmol/L (98-107) 10/15/22 19:36 Carbon Dioxide 23 mmol/L (22-29) 10/15/22 19:36 Anion Gap 18.2 (5-19) 10/15/22 19:36 BUN 7 mg/dL (6-20) 10/15/22 19:36 Creatinine 0.6 mg/dL (0.5-0.9) 10/15/22 19:36 GFR Calculation 125.0 mL/min (90-130) 10/15/22 19:36 Glucose 125 mg/dL (65-115) H 10/15/22 19:36 Calculated Osmolality 291 mOsm/kg (285-295) 10/15/22 19:36 Calcium 9.5 mg/dL (8.5-10.5) 10/15/22 19:36 Total Bilirubin 0.3 mg/dL (0.15-1.2) 10/15/22 19:36 AST 24 U/L (0-32) 10/15/22 19:36 ALT 46 U/L (0-33) H 10/15/22 19:36 Alkaline Phosphatase 166 U/L (35-105) H 10/15/22 19:36 Total Protein 7.9 g/dL (6.6-8.7) 10/15/22 19:36 Albumin 4.5 g/dL (3.5-5.2) 10/15/22 19:36 Globulin 3.4 g/dL (1.3-4.6) 10/15/22 19:36 Discharge Plan Discharge Patient Disposition: Home Clinical Impression: Vaginal bleeding Condition: Stable Prescriptions: No Action cetirizine [Zyrtec] 10 mg tablet 10 mg PO DAILY PRN (Reason: allergy symptoms) Qty: 30 1RF (DME) breast pump Device See Rx Instructions .Route Qty: 1 0RF Rx Instructions: As directed hydrocodone-acetaminophen 5-325 mg tablet 1 tab PO Q4H Qty: 30 0RF ibuprofen 800 mg tablet 800 mg PO Q8H Qty: 30 0RF Colace 100 mg capsule 100 mg PO TID Qty: 90 0RF Discharge Orders: Discharge ED (Routine); Ordered 10/15/22 Ordered By: Anita Fay Referrals: Rosie Warner FNP [Primary Care Provider] - Jannette Murrell MD [Physician] - 1-3 days Discharge Diet: Advance as tolerated Discharge Activity: Resume usual activity Patient Instructions: Abnormal (Dysfunctional) Uterine Bleeding (ED) Coding Level of Care Code ED Conference Planning Manager for Chg Fwd Exam Comprehensive
[2022-10-15 19:55] VITALS: BP 124/64; PULSE 76; RESP 24; O2SAT 98
[2022-10-15 20:00] VITALS: RESP 16; O2SAT 97
[2022-10-15] MEDS: morphine 4 mg/mL SDV 1 mL IVP (20:00)
[2022-10-15] MEDS: ondansetron 2 mg/ML SDV 2 mL 4 MG IVP (20:00)
[2022-10-15 20:03] LABS: Alanine Aminotransferase 46 U/L (0-33); Albumin Level 4.5 g/dL (3.5-5.2); Alkaline Phosphatase 166 U/L (35-105); Anion Gap 18.2 (5-19); Aspartate Amino Transferase 24 U/L (0-32); Blood Urea Nitrogen 7 mg/dL (6-20); Calcium 9.5 mg/dL (8.5-10.5); Carbon Dioxide 23 mmol/L (22-29); Chloride 104 mmol/L (98-107); Globulin 3.4 g/dL (1.3-4.6); Glucose 125 mg/dL (65-115); Osmolality Calculated 291 mOsm/kg (285-295); Potassium 4.2 mmol/L (3.5-5.1); Sodium 141 mmol/L (136-145); Total Bilirubin 0.3 mg/dL (0.15-1.2); Total Protein 7.9 g/dL (6.6-8.7)
[2022-10-15 20:28] VITALS: BP 124/64; RESP 16; O2SAT 97
== END 2022-10-15 21:30 | disposition home or self-care (01) ==
PROVIDERS: Nurse Practitioner Family; Emergency Provider Emergency Medicine; PCP Nurse Practitioner Family
DX: N93.9 Abnormal uterine and vaginal bleeding, unspecified (principal); N13.30 Unspecified hydronephrosis; F17.210 Nicotine dependence, cigarettes, uncomplicated
CPT/HCPCS: 36415; 74177; 80053; 85025; 96374; 96375; 99285; J2270; J2405; Q9967

== ENCOUNTER → 2023-03-07 11:33 | Outpatient (BNVA) | payer MEDICAID, SELFPAY | PROVIDERS: PCP Nurse Practitioner Family; Visit Provider Family Medicine Adult Medicine | DX: R10.9 Unspecified abdominal pain (principal); Z87.448 Personal history of other diseases of urinary system | CPT/HCPCS: 81000 ==